=== PATIENT | male | born 1940 | race Caucasian/White ===

== ENCOUNTER → 2017-03-12 | Outpatient (CLI) | payer BC ==
[~2017-03-12] MED LIST: ASPI325T39 PO; OMEP20TA PO; ONDA8TAB6 PO; PROC1TAB5 PO; PSYL48.59 PO; SIMV40TA2 PO
--- NOTE | 2017-03-12 13:06 | DIAGNOSTIC IMAGING REPORT ---
PET/CT SKULL-THIGH CLINICAL HISTORY: ESOPHAGEAL CANCER COMPARISON STUDY: 12/23/2016 FINDINGS: The patient was injected with 11.3 mCi of F-18 labeled FDG. Following the standard induction phase, PET/CT scanning is performed from the skull base to the upper thigh region. Within the neck, there is a subtle focus of increased FDG activity fusing to the right lobe of the thyroid. This has an SUV maximum of 3.3. In retrospect this appears similar to the preceding study. Within the chest, there is persistent increased activity fusing to a thick walled mid to distal esophagus. This is SUV maximum of 4.3. The previously identified hypermetabolic left paratracheal/para esophageal soft tissue mass has normalized in activity, and decreased in size. There is no new pathologic jorge activity within the chest. There is no FDG avid pulmonary parenchymal disease. There is underlying pulmonary emphysema. Within the abdomen, there is no pathologic hepatic or adrenal activity. There is no pathologic jorge activity. There is physiologic urinary tract and bowel activity. There is a 3.4 cm infrarenal abdominal aortic aneurysm There are no FDG avid skeletal lesions. IMPRESSION: 1. Persistent soft tissue thickening and increased FDG activity involving the distal one third of the esophagus 2. The previously identified left paratracheal/para esophageal soft tissue mass, extending to the level the AP window appear significantly smaller than on the preceding study and is no longer FDG avid. This would seem to indicate a treatment response 3. No pathologic abdominal activity. 4. Stable 3.4 cm infrarenal abdominal aortic aneurysm Electronically signed by: Jama Del Cid M.D. 03/12/2017 1:05 PM Dictated Date/Time: 03/12/2017 12:55 PM
== END | disposition home or self-care (01) ==
LOC: C.PET 09:03
PROVIDERS: ATTEND Internal Medicine Hematology
DX: C15.5 Malignant neoplasm of lower third of esophagus (principal); R59.0 Localized enlarged lymph nodes; I71.4 Abdominal aortic aneurysm, without rupture

== ENCOUNTER → 2017-03-26 | Outpatient (CLI) | payer BC ==
[~2017-03-26] MED LIST changes: +SENN-61 PO
[2017-03-26 14:06] VITALS: BP 106/63; PULSE 79; TEMP 36.5; O2SAT 98
--- NOTE | 2017-03-26 15:57 | Radiation Oncology Follow-Up ---
Radiation Oncology Follow-Up Date of Visit Mar 26, 2017. Reason For Visit One-month follow-up and cancer survivorship care plan Radiation Completion Date finished 02-14-2017 Diagnosis (1) Esophageal carcinoma Status: Acute Onset Date: 12/06/2016 Location: mid to lower esophagus Histology Subtype: adenocarcinoma Stage: lll Permanent Comment: Dysphagia beginning in September Status post upper GI endoscopy and biopsies 12/06/2016 Adenocarcinoma moderately differentiated Status post staging studies including CTs and head CT Clinical stage T3/4 N1 M0 Plan for combined radiation and chemotherapy followed by 3 cycles of chemotherapy Plan for esophagectomy at [facility] following preoperative chemoradiation Last Edited By: Benito Aguilar on Mar 07, 2017 16:11 History of Present Illness Mr. Pollock complained of dysphagia which started in September 2016. The patient was referred by his primary care physician to Dr. Benavides who performed a an upper endoscopy on 12/06/2016 which revealed "a large fungating mass with bleeding found in the lower third of the esophagus, 25-30 cm from the incisors. The mass was partially obstructing and circumferential and biopsies were obtained. Pathology confirmed invasive adenocarcinoma that was moderately differentiated and was HER-2 negative. The patient underwent a CT of the chest/ abdomen/pelvis on 12/07/2016 which revealed: "IMPRESSION: 1. Wall thickening involving the mid to distal esophagus as described above compatible with known esophageal malignancy. 2. Mediastinal lymphadenopathy. 3. Bilateral nonobstructive nephrolithiasis. Renal cysts. Several too small to characterize renal hypodensities. A 7 mm exophytic lesion from the left inferior pole demonstrates higher than fluid attenuation. This may be a hemorrhagic/proteinaceous cyst. Attention recommended on follow-up. 4. Additional findings as described above." The patient underwent a PET/CT scan which revealed: "IMPRESSION: 1. Hypermetabolic soft tissue mass of the distal one third esophagus measuring up to 3.5 cm compatible with known esophageal carcinoma. 2. Hypermetabolic left paratracheal soft tissue mass at the level of the AP window, 3.3 x 4.1 cm with extension into the tracheoesophageal recess suggests metastatic adenopathy. 3. Mildly increased FDG activity about the anterolateral left seventh rib without corresponding abnormality on the CT component of the study may reflect occult fracture or occult metastasis. Attention at follow-up recommended. 4. Additional incidental findings as above including fusiform infrarenal abdominal aortic aneurysm, 3.5 cm." The patient was seen by Dr. Bebeto Aguilar from medical oncology. Dr. Aguilar recommended consideration of chemotherapy and radiation therapy alone as the patient's primary malignancy appears to be unresectable and locally advanced in the mediastinum ([id number]). Dr. Aguilar from medical oncology has recommended FOLFOX chemotherapy with radiation therapy. We are now seeing the patient in consultation discussed the role of radiation therapy. The patient continues to have dysphasia otherwise is asymptomatic. He still is able to tolerate food and has maintained his weight recently. Status post completion of combined radiation and chemotherapy 02/14/2017. He received 5040 cGy. Interim History He has steadily improved over the past month. He denies any difficulty with swallowing. He is not experiencing dysphasia. He feels that occasionally there can be some difficulty with swallowing at the lower portion of the neck. There is been no regurgitation due to inability to swallow. He denies any discomfort in the chest. He has been seen at the [facility] on 03/20/2017. He is scheduled for the esophagectomy 04/07/2017. Prior to that visit he did have a PET/CT on 03/12/2017. Showed a persistent soft tissue thickening and increased FDG activity involving the distal one third of the esophagus. The previously identified left peritracheal/paraesophageal soft tissue mass, extending to the level of the AP window appears significantly smaller than on the preceding study and is no longer FDG avid. This would indicate treatment response. No pathologic abdominal activity. Stable 3.4 cm infrarenal abdominal aortic aneurysm. He is seen in medical oncology. There was a previous discussion of continue chemotherapy for 3 cycles following the combined therapy. After seeing the surgeon the patient has opted to have surgery and then possibly chemotherapy afterward if needed. Allergies Coded Allergies: No Known Allergies (Unverified , 12/26/16) Home Medications Scheduled Aspirin (Aspirin Ec), 325 MG PO Q2D Omeprazole (Omeprazole), 40 MG PO DAILY Prochlorperazine Maleate (Compazine), 10 MG PO Q4H Psyllium (Metamucil), 1 TSP PO BID Simvastatin (Zocor), 40 MG PO 4XWK Scheduled PRN Ondansetron Hcl (Zofran), 8 MG PO TID PRN for Nausea Senna (Senokot), 2 TAB PO DAILY PRN for Constipation Review of Systems Gastrointestinal: Symptoms: Constipation Oral: Symptoms: No Problems Respiratory: Symptoms: WNL Urinary: Symptoms: WNL Comments: occ nocturia Skin: Symptoms: No Problems Additional Notes: He completed a distress management report and answered "no" to all questions. Physical Exam Vital Signs Date Time Temp Pulse Resp B/P (MAP) Pulse Ox O2 Delivery O2 Flow Rate FiO2 03/26/17 14:06 36.5 79 16 106/63 98 Fatigue: None General Appearance: no apparent distress Eyes: normal inspection, EOMI ENT: normal ENT inspection, hearing grossly normal Neck: no adenopathy, thyroid normal Respiratory/Chest: lungs clear, no respiratory distress, no accessory muscle use Cardiovascular: regular rate, rhythm, no gallop, no murmur Extremities: no pedal edema Neurologic/Psychiatric: no motor/sensory deficits, alert, normal mood/affect Skin: warm/dry Pain Management Patient Reports Pain: No Side: Bilateral Patient Preferred Pain Scale: 0 - 10 Initial Pain Intensity: 0.0 Pain Management Plan He denies pain therefore requires no pain management. Laboratory Laboratory Results: not applicable Pathology Pathology Results: not applicable Imaging Imaging Studies: were reviewed, and pertinent findings noted below Imaging Comments Patient: RAY WYLIE Address1: [address] [place] [address] Rec: [id number] Address2: Acct ID: [id number] [facility] Zip: [place] [address] Date: 1940 Sex: M Room/Bed: Ref Phy: SC: C.PET Att Phy: Bebeto Aguilar M.D. Report #: [id number] Brissa Phy: Marco Antonio Brantley M.D. Test: PETCTST Admit Phy: Manager Of Environmental Services: [employer] Interpreting Phy: Jama Del Cid M.D. Diagnosis: ESOPHAGEAL CA Ordering Phy: Bebeto Aguilar M.D. Service Date: 03/12/17 Admit Date: 03/12/17 MNE: [id number] CONF: DICTATED BY: Jama Del Cid M.D.]] CC: Marco Antonio Brantley M.D. Patel, Nilesh A., M.D. Endcc: [~ rep ct add3]] PET/CT SKULL-THIGH CLINICAL HISTORY: ESOPHAGEAL CANCER COMPARISON STUDY: 12/23/2016 FINDINGS: The patient was injected with 11.3 mCi of F-18 labeled FDG. Following the standard induction phase, PET/CT scanning is performed from the skull base to the upper thigh region. Within the neck, there is a subtle focus of increased FDG activity fusing to the right lobe of the thyroid. This has an SUV maximum of 3.3. In retrospect this appears similar to the preceding study. Within the chest, there is persistent increased activity fusing to a thick walled mid to distal esophagus. This is SUV maximum of 4.3. The previously identified hypermetabolic left paratracheal/para esophageal soft tissue mass has normalized in activity, and decreased in size. There is no new pathologic jorge activity within the chest. There is no FDG avid pulmonary parenchymal disease. There is underlying pulmonary emphysema. Within the abdomen, there is no pathologic hepatic or adrenal activity. There is no pathologic jorge activity. There is physiologic urinary tract and bowel activity. There is a 3.4 cm infrarenal abdominal aortic aneurysm There are no FDG avid skeletal lesions. IMPRESSION: 1. Persistent soft tissue thickening and increased FDG activity involving the distal one third of the esophagus 2. The previously identified left paratracheal/para esophageal soft tissue mass, extending to the level the AP window appear significantly smaller than on the preceding study and is no longer FDG avid. This would seem to indicate a treatment response 3. No pathologic abdominal activity. 4. Stable 3.4 cm infrarenal abdominal aortic aneurysm Electronically signed by: Jama Del Cid M.D. 03/12/2017 1:05 PM Dictated Date/Time: 03/12/2017 12:55 PM Assessment & Plan Plan: Patient is also seen and examined by Dr. Aguilar. We reviewed his recent PET/CT. Today we completed a cancer survivorship care plan. A copy of the document was given to the patient. He'll be undergoing the esophagectomy 2017. We asked him to return to our office 6 months. He may call if he has any questions or concerns in the interim. Assessment & Plan (Attending) I agree with note created by Mary Rodriguez PA-C. I reviewed the patient's chart and information with her. I have examined and evaluated the patient. I reviewed relevant clinical information and answered the patient's and/or family' s questions. SECTION MAINTAINER Total Time In Follow-Up I spent 20 minutes speaking to the patient and performing examination. I spent 20 minutes reviewing information, preparing the survivorship document, and completing this note. Total Time (Attending) In Follow-Up I spent 15 minutes examining and counseling the patient. SECTION MAINTAINER Copy To Bob Melendez M.D., FACS; Logan Jones M.D.; Tan Benavides M.D.; Marco Antonio Brantley M.D.; Bebeto Aguilar M.D.
== END | disposition home or self-care (01) ==
LOC: C.ONC 13:56
PROVIDERS: ATTEND Physician Assistant Medical
DX: Z08 Encounter for follow-up examination after completed treatment for malignant neoplasm (principal); Z92.3 Personal history of irradiation; Z85.01 Personal history of malignant neoplasm of esophagus

== ENCOUNTER → 2017-06-13 | Day surgery (SDC) | payer BC ==
[2017-06-11 08:45] VITALS: Ht 172.7 cm; Wt 77.3 kg
[~2017-06-13] VITALS: Ht 172.7 cm; Wt 77.3 kg
[~2017-06-13] MED LIST changes: +ACET-1256 PO; -OMEP20TA PO; -ONDA8TAB6 PO; -PROC1TAB5 PO; -PSYL48.59 PO; -SIMV40TA2 PO; +ZNT/150 PO
[2017-06-13 11:25] VITALS: BP 122/79; PULSE 80; TEMP 36.6; O2SAT 97
--- NOTE | 2017-06-13 12:07 | Endo History and Physical ---
History & Physical Date of Service: Jun 13, 2017. Chief Complaint: PEJ tube removal Referring Physician: History of Present Illness PEJ tube removal Past Surgical History Hx Cardiac Surgery: No Hx Internal Defibrillator: No Hx Pacemaker: No Hx Abdominal Surgery: Yes (PEG TUBE PLACEMENT) Hx of Implantable Prosthesis: No Hx Post-Op Nausea and Vomiting: No Hx Cancer Surgery: Yes (ESOPHAGEAL CANCER) Hx Thoracic Surgery: No Hx Orthopedic: Yes (L TKA) Hx Urinary Tract Surgery: No Family History Colon CA, Esophogeal CA Social History Smoking Status: Former Smoker Hx Substance Use: No Hx Alcohol Use: Yes (COUPLE BEERS A WEEK) Allergies Coded Allergies: No Known Allergies (Verified , 06/13/17) Current Medications Reported Home Medications Medications Dose Route/Sig Max Daily Dose Days Date Category Tylenol (Acetaminophen) 500 Mg Tab 1 Tab PO Q8 3 06/11/17 Reported Senokot (Senna) 8.6 Mg Tab 2 Tab PO DAILY PRN 03/26/17 Reported Aspirin Ec (Aspirin) 325 Mg Tab 325 Mg PO Q2D 12/26/16 Reported Vital Signs Weight (Kilograms): 77.27 Height (Feet): 5 Height (Inches): 8 Date Time Temp Pulse Resp B/P (MAP) Pulse Ox O2 Delivery O2 Flow Rate FiO2 06/13/17 11:25 36.6 80 16 122/79 (93) 97 Room Air Physical Exam General Appearance: no apparent distress Respiratory/Chest: Auscultation: breath sounds normal Cardiovascular: Heart Auscultation: RRR Abdomen: Bowel Sounds: normal Assessment and Plan Remove PEJ tube
--- NOTE | 2017-06-13 12:14 | Discharge Instructions ---
Endoscopy Patient Instructions Date / Procedure(s) Performed Jun 13, 2017. Other Allergy Information Coded Allergies: No Known Allergies (Verified , 06/13/17) Discharge Date / Findings Jun 13, 2017. Removal of J tube; removed without incident Medication Instructions Stopped Medication(s): ASPIRIN 2DAYS AGO Resume aspirin Provider Instructions Activity Restrictions - No exercising or heavy lifting for 24 hours. - Do not drink alcohol the day of the procedure. - Do not drive a car or operate machinery until the day after the procedure. - Do not make any important decisions or sign important papers in 24 hours after the procedure. Following Day: - Return to full activity which may include returning to work/school. Diet Start your diet with liquids and light foods (jello, soup, juice, toast). Then eat your usual diet if not nauseated. Treatment For Common After Affects For mild abdominal pain, bloating, or excessive gas: - Rest - Eat lightly - Lie on right side Follow-Up Information Follow-up with as scheduled Anesthesia Information What You Should Know You have had a procedure that required some medicine to reduce anxiety and discomfort. This treatment is called moderate sedation. After receiving the treatment, you may be sleepy, but you will be able to breathe on your own. The effects of the treatment may last for several hours. Follow these instructions along with Activity/Diet recommendations noted above: * Do NOT do anything where dizziness or clumsiness would be dangerous. * Rest quietly at home today, then you can be up and about tomorrow. * Have a responsible person stay with you the rest of today. * You may have had an I.V. today. If so, you may take the dressing off later today. Recommendations Call your doctor if: * Trouble breathing * Continuous vomiting for more than 24 hours * Temperature above 101 degrees * Severe abdominal pain or bloating * Pain not relieved by pain medicine ordered * There is increased drainage or redness from any incision * A large amount of rectal bleeding greater than 2-3 tablespoons. (If you had a polyp/s removed or have hemorrhoids, a small amount of blood - from the rectum is to be expected.) * You have any unanswered questions or concerns. IN THE EVENT OF A SERIOUS EMERGENCY, GO TO THE NEAREST EMERGENCY ROOM Your discharge instructions were prepared by provider Fahad Perez. Patient Instructions Signature Page Renuka Brown Patient (or Guardian) Signature/Date: I have read and understand the instructions given to me by my caregivers. Caregiver/RN/Doctor Signature/Date: The above-named patient and/or guardian has received patient instructions on this date. + Original Patient Signature Page (only) stays with chart. Please make copy for patient.
--- NOTE | 2017-06-13 12:16 | GI REPORT ---
Procedure Date: 06/13/2017 12:14 PM Procedure: Non-endoscopic Tube Procedure Indications: Remove PEJ tube (no longer needed) Medicines: None Complications: No immediate complications. Estimated Blood Loss: Estimated blood loss: none. Procedure: Pre-Anesthesia Assessment: - After reviewing the risks and benefits, the patient was deemed in satisfactory condition to undergo the procedure. After obtaining informed consent, the site was prepped and the procedure was performed. The procedure was accomplished without difficulty. The patient tolerated the procedure well. Findings: The previously placed J tube was in place and was unremarkable. There was a skin suture that was removed, and the tube was easily removed by traction without complication. Recommendation: - Discharge patient to home. Fahad Bobby M.D. Fahad Bobby MD 06/13/2017 12:15:56 PM This report has been signed electronically. Note Initiated On: 06/13/2017 12:14 PM I attest to the content of the Intraoperative Record and orders documented therein, exceptions below
== END | disposition home or self-care (01) ==
LOC: C.GI 10:54
PROVIDERS: ATTEND Internal Medicine Gastroenterology
DX: Z43.1 Encounter for attention to gastrostomy (principal); R13.10 Dysphagia, unspecified; Z85.01 Personal history of malignant neoplasm of esophagus; Z96.652 Presence of left artificial knee joint; Z87.891 Personal history of nicotine dependence; Z79.82 Long term (current) use of aspirin; Z80.0 Family history of malignant neoplasm of digestive organs

== ENCOUNTER → 2017-09-23 | Outpatient (CLI) | payer BC ==
[2017-03-26 14:06] VITALS: BP 106/63; PULSE 79
[~2017-09-23] MED LIST changes: +LEVO100T7 PO; -ZNT/150 PO; +[UNRECOGNIZED DRUG - OTHER] IM
[2017-09-23 13:56] VITALS: BP 146/73; PULSE 66; TEMP 37; O2SAT 98
--- NOTE | 2017-09-23 16:03 | Radiation Oncology Follow-Up ---
Radiation Oncology Follow-Up Date of Visit Sep 23, 2017. Reason For Visit Six-month follow-up Radiation Completion Date 02/14/17 Diagnosis (1) Esophageal carcinoma Status: Acute Onset Date: 12/06/2016 Location: Mid to lower esophagus Histology Subtype: Adenocarcinoma Stage: lll Permanent Comment: Dysphagia beginning in September Status post upper GI endoscopy and biopsies 12/06/2016 Adenocarcinoma moderately differentiated Status post staging studies including CTs and head CT Clinical stage T3/4 N1 M0 Plan for combined radiation and chemotherapy followed by 3 cycles of chemotherapy Plan for esophagectomy at [facility] following preoperative chemoradiation Last Edited By: Benito Aguilar on Mar 07, 2017 16:11 History of Present Illness Mr. Pollock complained of dysphagia which started in September 2016. The patient was referred by his primary care physician to Dr. Benavides who performed a an upper endoscopy on 12/06/2016 which revealed "a large fungating mass with bleeding found in the lower third of the esophagus, 25-30 cm from the incisors. The mass was partially obstructing and circumferential and biopsies were obtained. Pathology confirmed invasive adenocarcinoma that was moderately differentiated and was HER-2 negative. The patient underwent a CT of the chest/ abdomen/pelvis on 12/07/2016 which revealed: "IMPRESSION: 1. Wall thickening involving the mid to distal esophagus as described above compatible with known esophageal malignancy. 2. Mediastinal lymphadenopathy. 3. Bilateral nonobstructive nephrolithiasis. Renal cysts. Several too small to characterize renal hypodensities. A 7 mm exophytic lesion from the left inferior pole demonstrates higher than fluid attenuation. This may be a hemorrhagic/proteinaceous cyst. Attention recommended on follow-up. 4. Additional findings as described above." The patient underwent a PET/CT scan which revealed: "IMPRESSION: 1. Hypermetabolic soft tissue mass of the distal one third esophagus measuring up to 3.5 cm compatible with known esophageal carcinoma. 2. Hypermetabolic left paratracheal soft tissue mass at the level of the AP window, 3.3 x 4.1 cm with extension into the tracheoesophageal recess suggests metastatic adenopathy. 3. Mildly increased FDG activity about the anterolateral left seventh rib without corresponding abnormality on the CT component of the study may reflect occult fracture or occult metastasis. Attention at follow-up recommended. 4. Additional incidental findings as above including fusiform infrarenal abdominal aortic aneurysm, 3.5 cm." The patient was seen by Dr. Bebeto Aguilar from medical oncology. Dr. Aguilar recommended consideration of chemotherapy and radiation therapy alone as the patient's primary malignancy appears to be unresectable and locally advanced in the mediastinum ([id number]). Dr. Aguilar from medical oncology has recommended FOLFOX chemotherapy with radiation therapy. We are now seeing the patient in consultation discussed the role of radiation therapy. The patient continues to have dysphasia otherwise is asymptomatic. He still is able to tolerate food and has maintained his weight recently. Status post completion of combined radiation and chemotherapy 02/14/2017. He received 5040 cGy. Interim History Over the past 6 months he has had continued follow-up with medical oncology, gastroenterology, and ophthalmology. He does have issues with a stricture. He has had one dilatation. He has again developed dysphasia and difficulty of swallowing. He is going to have repeat dilatation on September 30, 2017. Recheck scoping's have revealed no recurrence. His weight is stable. He has had an ongoing pressure behind the right eye. This is intermittent. Occasionally he will have to take Tylenol. He does this approximately 3 or 4 times per week. He notices that he if he has increased coughing the pressure will increase. He also notices the pressure increases with bending over. He has seen ophthalmology and had a complete evaluation. He was told that his eye is "healthy" he was evaluated for glaucoma and that was negative. He notices at times he has difficulty with taking in a deep breath. He coughed and sustained a fracture to a left rib. This is steadily healing. That has become more noticeable over the past few months. He has had recheck studies including a PET CT on July 30. Allergies Coded Allergies: No Known Allergies (Verified , 06/13/17) Home Medications Scheduled Acetaminophen (Tylenol), 1 TAB PO Q8 Aspirin (Aspirin Ec), 325 MG PO Q2D Levothyroxine Sodium (Levothyroxine Sodium), 1 TAB PO DAILY [B12 Injection], 1 APPLN IM MONTHLY Scheduled PRN Senna (Senokot), 2 TAB PO DAILY PRN for Constipation Review of Systems Gastrointestinal: Symptoms: WNL, Constipation GI Comments: Senna PRN Oral: Symptoms: No Problems Other Oral Symptoms: Possible staple sticking out causing swallowing issues - EGD 09/30/17 Respiratory: Symptoms: WNL, Moist Cough, Productive Cough Sputum Character: Clearn Sputum with productive Cough Urinary: Symptoms: WNL Comments: occ nocturia Skin: Symptoms: No Problems Physical Exam Vital Signs Date Time Temp Pulse Resp B/P (MAP) Pulse Ox O2 Delivery O2 Flow Rate FiO2 09/23/17 13:56 37.0 66 16 146/73 98 ECOG Performance Status: 0 Fatigue: None General Appearance: no apparent distress Eyes: normal inspection, EOMI ENT: normal ENT inspection, hearing grossly normal, + pertinent finding (There is no trismus. He has no tenderness of the TMJ. There is no tenderness of the frontal or maxillary sinuses.) Neck: no adenopathy, thyroid normal Respiratory/Chest: lungs clear, no respiratory distress, no accessory muscle use Cardiovascular: regular rate, rhythm, no gallop, no murmur Abdomen: non tender, soft, no organomegaly Extremities: no pedal edema Neurologic/Psychiatric: no motor/sensory deficits, alert, normal mood/affect Skin: warm/dry Pain Management Patient Reports Pain: Yes Side: Left Pain Location: Ribs Patient Preferred Pain Scale: 0 - 10 Initial Pain Intensity: 2.0 Pain Management Plan This is steadily improving and does not require any pain management through our office. He takes Tylenol intermittently. Laboratory Laboratory Results: not applicable Pathology Pathology Results: were reviewed, and pertinent findings noted in HPI Imaging Imaging Studies: were reviewed, and pertinent findings noted below Imaging Comments Patient: RAY WYLIE Address1: [address] [place] [address] Rec: [id number] [facility] [id number] [facility] Zip: [place] [address] Date: 1940 Sex: M Room/Bed: Ref Phy: Marco Antonio Brantley M.D. SC: CJeffreyPET Att Phy: Bebeto Aguilar M.D. Report #: [id number] Brissa Phy: Marco Antonio Brantley M.D. Test: PETCTST Admit Phy: Assistant Press Operator: KATELYNN Interpreting Phy: Amadeo Hope M.D. Diagnosis: ESOPHAGEAL CA Ordering Phy: Bebeto Aguilar M.D. Service Date: 07/30/17 Admit Date: 07/30/17 MNE: [id number] CONF: DICTATED BY: Amadeo Hope M.D.]] CC: Marco Antonio Brantley M.D. Patel, Nilesh A., M.D. [facility]: [~ rep ct add3]] PET/CT CLINICAL HISTORY: Esophageal cancer. COMPARISON STUDY: PET/CT dated 03/12/2017. Chest CT dated 12/07/2016. TECHNIQUE: One hour following the IV administration of 11.99 mCi of F-18 FDG, PET/CT examination was performed from the orbital meatal line through the bony pelvis. Noncontrast CT is performed for the purposes of anatomic correlation and attenuation correction. Note that this does not reflect a diagnostic CT examination. Images were reviewed on a separate [employer] independent workstation. Fused images were obtained. Standard uptake values reported are maximum values within the region of interest expressed in gm/mL. FINDINGS: PET FINDINGS: Head and neck: There is expected physiologic activity within the visualized brain parenchyma at the skull base and the salivary glands. Thorax: Evaluation of the thorax demonstrates expected physiologic myocardial activity. There is diffuse activity throughout the thyroid gland which demonstrates a maximum of severe 5.2. No focal thyroid lesion is identified. There are postoperative changes from esophageal resection with gastric pull-through procedure. There is a focus of intense FDG activity identified adjacent to the gastric pull-through seen on image #69. This demonstrates a maximum SUV of 3.2. There is no corresponding soft tissue lesion seen on the CT images. No FDG avid mediastinal lymph nodes are identified. There is a 10 mm nodular density in the left lower lobe seen on image #80. This demonstrates FDG activity with a maximum SUV of 3.3. There is low level FDG activity within bibasilar atelectasis. This demonstrate a maximum SUV of 2.1. There is intense abnormal FDG activity identified within the anterior left seventh rib seen on image #123. This demonstrates a maximum SUV of 4.1. A subtle lytic lesion is suggested at this site. Abdomen and pelvis: There is expected activity within the liver, spleen, kidneys, renal collecting system, and bladder. Low-level bowel activity is likely within physical limits. Unenhanced CT images: The partially imaged brain parenchyma at the skull base is normal in appearance. The overall contents are normal as visualized noting bilateral ocular lens implants. The salivary and thyroid glands are normal in appearance. There is atherosclerotic calcification of the carotid bulbs. No cervical adenopathy is identified. A left subclavian central venous infusion port is in place. There is atherosclerotic calcification of the thoracic aorta which is normal in caliber. There is no axillary or hilar adenopathy. Emphysema is noted. There is a small to moderate left pleural effusion with associated atelectasis. Scarring/atelectasis is seen at the right lung base. The unenhanced liver, gallbladder, spleen, and adrenal glands are grossly unremarkable. The unenhanced pancreas is atrophic. The kidneys insert cortical atrophy and are without hydronephrosis. Small nonobstructing renal calculi are noted and there are renovascular calcifications. Left renal cysts measure up to 1.9 cm. There is advanced atherosclerotic calcification of the abdominal aorta. An infrarenal abdominal aortic aneurysm measures 3.6 x 3.5 cm. There is no bowel obstruction. There is mild colonic diverticulosis without CT evidence of acute diverticulitis. Colonic fecal retention is observed. The splenic flecture is contained within a large hiatal hernia. There is no upper abdominal, mesenteric, retroperitoneal, iliac chain, pelvic sidewall, or inguinal lymphadenopathy. The prostate gland is enlarged and heterogeneous. The bladder wall is thickened and trabeculated suggesting chronic outlet obstruction. The skeletal structures are heterogeneously osteopenic. There are healed left-sided rib fractures. Degenerative changes noted throughout the spine. IMPRESSION: 1. There are postoperative changes from esophagectomy and gastric pull-through procedure. This is new from the 03/12/2017 examination. 2. There is a small to moderate left pleural effusion and bibasilar atelectasis. 3. There is an indeterminant and FDG avid 10 mm nodular density in the left lower lobe. There is adjacent pleural effusion and atelectasis, and this could be on an inflammatory basis. Neoplasm is not excluded and attention at follow-up is recommended. 4. No additional FDG avid pulmonary lesions are suggested. 5. There is intense focal abnormal FDG activity identified within the left anterior seventh rib, new from 03/12/2017. A subtle osteolytic lesion is questioned in this region. Although this could be on a posttraumatic basis, neoplasm is not excluded. Again, attention at follow-up will be required. 6. No additional FDG avid osseous lesions are suggested. 7. There is a focus of FDG activity along the gastric pull-through. There is no corresponding soft tissue lesion seen on the CT images and this may be related to recent surgery. Attention at follow-up will be required. 8. There is a 3.6 x 3.5 cm infrarenal abdominal aneurysm. 9. Emphysema. 10. There is a large hiatal hernia which contains the splenic flexure of the colon. 11. There is bibasilar atelectasis which demonstrates nonspecific low-level FDG activity. 12. There is diffuse FDG uptake seen throughout the thyroid gland, significant increase from 03/12/2017. The appearance is atypical for neoplasm. Correlation with serum thyroid function studies will be required. 13. Additional findings as above. Electronically signed by: Amadeo Hope M.D. 07/30/2017 12:02 PM Dictated Date/Time: 07/30/2017 11:18 AM Assessment & Plan Plan: The patient was seen and examined by Dr. Aguilar. We have reviewed his PET/ CT. The CT portion of the study was also reviewed to evaluate the orbits. There were no lesions noted in this area. He will be following up with gastroenterology and have the esophageal dilatation September 30. Continue regular follow-up with medical oncology. Recheck PET scanning per medical oncology. Today we discussed incentive spirometry. I have encouraged him to do deep breathing exercises twice a day. We asked him to return to our office in 1 year. He may call if he has any questions or concerns in the interim. Assessment & Plan (Attending) I agree with note created by Mary Rodriguez PA-C. I reviewed the patient's chart and information with her. I have examined and evaluated the patient. I reviewed relevant clinical information and answered the patient's and/or family' s questions. STAGING TECHNICIAN Total Time In Follow-Up I spent 20 minutes speaking to the patient in performing examination. I spent 15 minutes reviewing information and completing this note. A AK Total Time (Attending) In Follow-Up I spent 15 minutes examining and counseling the patient. STAGING TECHNICIAN Copy To Logan Jones M.D.; Tan Benavides M.D.; Marco Antonio Brantley M.D.; Bebeto Aguilar M.D.
== END | disposition home or self-care (01) ==
LOC: C.ONC 13:36
PROVIDERS: ATTEND Physician Assistant Medical
DX: Z08 Encounter for follow-up examination after completed treatment for malignant neoplasm (principal); Z92.3 Personal history of irradiation; Z85.01 Personal history of malignant neoplasm of esophagus

== ENCOUNTER 2018-07-10 18:29 | Inpatient (IN) ==
--- NOTE | 2018-07-10 18:48 | CT Scan Report ---
CT OF THE HEAD WITHOUT CONTRAST CLINICAL HISTORY: Stroke. COMPARISON STUDY: Head CT March 20, 2018. CT DOSE: 537.48 mGy.cm TECHNIQUE: Helical axial images of the head were obtained without IV contrast. Automated exposure con trol was utilized for the study. A dose lowering technique was utilized adhering to the principles o f ALARA. FINDINGS: No acute intracranial hemorrhage, midline shift or mass effect is present. Ventricular syst em is stable. The basilar cisterns are patent. There are no extra-axial collections. 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 There are multiple old lacunar infarcts within the right basal ganglia a nd internal capsule. A 7 mm hypodensity within the right thalamus on image 14 of 28 is noted. This wa s not evident on prior exam. There are no findings to suggest acute dural sinus thrombosis or acute t erritorial infarct. There are no significant calvarial abnormalities. IMPRESSION: 1. No acute intracranial hemorrhage or mass effect. 2. 7 mm right thalamic hypodensity. This represents an age indeterminate lacunar infarct but is likel y subacute to chronic. Electronically signed by: Alvin Andrew M.D. 07/10/2018 6:47 PM
[2018-07-10 19:10] LABS: INR 1.1 (0.9-1.1); Partial Thromboplastin Ratio 1.4; Partial Thromboplastin Time 38.1 Seconds (21.0-31.0); Prothrombin Time 10.8 Seconds (9.0-12.0)
[2018-07-10 19:17] LABS: Alanine Aminotransferase 12 U/L (12-78); Albumin Level 2.9 gm/dl (3.4-5.0); Aspartate Aminotransferase 10 U/L (15-37); BUN Creatinine Ratio 10.2 (10-20); Blood Urea Nitrogen 13 mg/dl (7-18); Calcium 7.8 mg/dl (8.5-10.1); Carbon Dioxide 34 mmol/L (21-32); Chloride 91 mmol/L (98-107); Est GFR (African American) 63.2; Est GFR (Non-African American) 54.5; Glucose 131 mg/dl (70-99); Magnesium 1.7 mg/dl (1.8-2.4); Potassium 2.9 mmol/L (3.5-5.1); Sodium 132 mmol/L (136-145)
[2018-07-10 19:22] LABS: Albumin Globulin Ratio 0.8 (0.9-2); Alkaline Phosphatase 62 U/L (45-117); Bilirubin,Total 0.8 mg/dl (0.2-1); Globulin 3.5 gm/dl (2.5-4.0); Total Protein 6.4 gm/dl (6.4-8.2); Troponin I < 0.015 ng/ml (0-0.045)
[2018-07-10] MEDS ORDERED: SODIUM CHLORIDE 0.9% 1000ML 500 ML IV ONE ×2 (19:32→20:20)
--- NOTE | 2018-07-10 19:36 | XRay Report ---
XR chest 1V portable CLINICAL HISTORY: Weakness. Confusion. COMPARISON STUDY: Chest CT March 20, 2018. Head CT June 10, 2018. FINDINGS: Left subclavian [id number] is in place. Note is again made of left lower hemithorax opac ity which contains bowel loops. This represents a left diaphragmatic hernia. This appears unchanged. There is a possible small left pleural effusion. There is no evidence for pulmonary edema. Cardiomedi astinal silhouette is stable. IMPRESSION: 1. Left lower hemithorax opacity related to a left diaphragmatic hernia which appears unchanged since CT of the March 20, 2018. 2. Possible small left pleural effusion. Electronically signed by: Alvin Andrew M.D. 07/10/2018 7:34 PM
[2018-07-10 19:44] LABS: Hematocrit (blood only) 37.3 % (42-52); Hemoglobin 12.3 g/dL (14.0-18.0); Mean Corpuscular Volume 94.2 fL (80-100); Platelet Count 75 K/uL (130-400); RDW Coefficient of Variation 16.2 % (11.5-14.5); Red Blood Count 3.96 M/uL (4.7-6.1); White Blood Count 1.28 K/uL (4.8-10.8)
[2018-07-10 19:47] LABS: Dohle Bodies 1+; Lymphocytes # (auto) 0.38 K/uL (1.2-3.4); Lymphocytes % (auto) 29.7 %; Monocytes # (auto) 0.17 K/uL (0.11-0.59); Monocytes % (auto) 13.3 %; Neutrophils # (auto) 0.73 K/uL (1.4-6.5)
[2018-07-10] MEDS ORDERED: POTASSIUM CHLORIDE / WTR 10 MEQ/100 ML PLCT IV ONE (20:12)
[2018-07-10] MEDS ORDERED: CEFEPIME 2,000 MG/20 ML VIAL IV STA (20:18)
[2018-07-10] MEDS ORDERED: MAGNESIUM SULFATE / D5W 1 GM/100 ML BAG IV ONE (20:18)
--- NOTE | 2018-07-10 20:33 | Emergency Department Note ---
Entered by Armida Clark acting as a scribe for Alejandro Correia M.D. History of Present Illness General Chief complaint: Altered Mental Status Stated complaint: CONFUSION, SLOW MOTION, LEANING LEFT, WET PANTS Time Seen by Provider: 07/10/18 18:33 Source: family () History of Present Illness Onset (ago): hour(s) 6 (6.5) Location: head (altered mental status) Pain Consistency: + constant Relieved By: + none Associated symptoms: + denies other symptoms (pain, numbness, slurred speech), + weakness and + other (fatigue, urinary incontinence) The patient is a 78 year old M who presents to the Emergency Room with complaints of constant altered mental status that occurred 6.5 hour ago. The HPI was primarily provided by the patients . She states that the patient is currently getting chemotherapy for esophageal cancer. She adds that the patient had an esophageal resection performed in March 2017. She notes that the patients last chemotherapy treatment was yesterday. She adds that the patient oncologist is Dr. Bebeto Aguilar, [place], [place]. She notes that the patients symptoms started around 6.5 hours ago. She states that around 3 pm today the patient was napping on their couch but was slumped over to the left. She notes that she just thought that the patient was sleeping. She states that at 5pm toda y, she tried to call the patient to dinner but adds that the patient would not respond to her. She notes that this is when she called EMS. She states that the patient is currently experiencing fatigue, urinary incontinence, and weakness. She denies that the patient is currently experiencing pain, numbness, and slurred speech. She notes the patient is currently on Lovenox for a blood clot that occurred on the back of the patients left arm after chemotherapy. She denies that the patient has a history of strokes and recent blood transfusions. Home Medications Home Medications Medication Instructions Recorded Confirmed Type cyanocobalamin (vitamin B-12) 1,000 mcg IM .Q4 WEEKS 07/10/18 07/10/18 History dexamethasone 4 mg PO UD 07/10/18 07/10/18 History enoxaparin [Lovenox] 70 mg SUBCUT Q12 07/10/18 07/10/18 History hydrochlorothiazide 25 mg PO DAILY PRN 07/10/18 07/10/18 History levothyroxine 100 mcg PO DAILY 07/10/18 07/10/18 History morphine [MS Contin] 15 mg PO Q12 07/10/18 07/10/18 History ondansetron HCl [Zofran] 4 mg PO Q8 PRN 07/10/18 07/10/18 History oxycodone-acetaminophen [Percocet] 1 tab PO Q6 PRN 07/10/18 07/10/18 History prochlorperazine maleate 10 mg PO Q6 PRN 07/10/18 07/10/18 History ranitidine HCl [Zantac] 150 mg PO BID 07/10/18 07/10/18 History Allergies Allergy/AdvReac Type Severity Reaction Status Date / Time No Known Allergies Allergy Verified 07/10/18 19:09 Past Med/Surg History Medical History 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) "Dysphagia beginning in September Status post upper GI endoscopy and biopsies 12/06/2016 Adenocarcinoma moderately differentiated Status post staging studies including CTs and head CT Clinical stage T3/4 N1 M0 Plan for combined radiation and chemotherapy followed by 3 cycles of chemotherapy Plan for esophagectomy at [facility] following preoperative chemoradiation" On 12/26/16 17:07 Benito Aguilar wrote "Dysphagia beginning in [place] Status post upper GI endoscopy and biopsies 12/06/2016 Adenocarcinoma moderately differentiated Status post staging studies including CTs and head CT Clinical stage T4b N1 M0 Plan for combined radiation and chemotherapy followed by 3 cycles of chemotherapy" On 12/26/16 11:45 Mary Rodriguez wrote "Dysphagia beginning in [place] Status post upper GI endoscopy and biopsies 12/06/2016 Adenocarcinoma moderately differentiated Status post staging studies including CTs and head CT Clinical stage T4b N2 M0 Plan for combined radiation and chemotherapy followed by 3 cycles of chemotherapy" Radiation thyroiditis (Chronic) Surgical History H/O esophagectomy Social History Preferred Language: Turkish Communication Ability: Effective Beliefs That Will Affect Care: None marital status: Current Living Situation: Spouse current occupational status: retired Feels Safe at Home: Yes Smoking Status: Never smoker Tobacco Type: cigarettes Second Hand Exposure: No Hx Alcohol Use: Yes Alcohol type: beer Hx Substance Use: No Review of Systems See HPI for pertinent positives & negatives. and A total of 10 systems reviewed and were otherwise negative Physical Exam Vital Signs Vital Signs - 24 hr 07/10/18 18:31 07/10/18 18:43 07/10/18 18:45 Temperature 38 C H Temperature Source Oral Sepsis Recent Fever Within 48 Hours No Sepsis Action Taken by Nursing No Action Required Pulse Rate 118 H 135 H 114 H Pulse Rate from SpO2 Sensor 114 H Pulse Rhythm Regular Pulse Strength Normal Respiratory Rate 20 Respiratory Effort / Characteristics Non-Labored Spontaneous Respiratory Depth Normal Respiratory Pattern Regular Blood Pressure 114/75 108/75 Blood Pressure Mean 88 86 Blood Pressure Position Sitting Pulse Oximetry 93 94 Oxygen Delivery Method Room Air Fraction of Inspired Oxygen 07/10/18 18:46 07/10/18 19:00 07/10/18 19:11 Temperature Temperature Source Sepsis Recent Fever Within 48 Hours Sepsis Action Taken by Nursing Pulse Rate 113 H 108 H 109 H Pulse Rate from SpO2 Sensor 113 H 110 H 109 H Pulse Rhythm Pulse Strength Respiratory Rate 16 Respiratory Effort / Characteristics Respiratory Depth Respiratory Pattern Blood Pressure 92/60 L Blood Pressure Mean 70 Blood Pressure Position Pulse Oximetry 95 94 94 Oxygen Delivery Method Fraction of Inspired Oxygen 07/10/18 19:15 07/10/18 19:22 07/10/18 19:23 Temperature Temperature Source Sepsis Recent Fever Within 48 Hours Sepsis Action Taken by Nursing Pulse Rate 109 H 109 H 110 H Pulse Rate from SpO2 Sensor 109 H 110 H 105 H Pulse Rhythm Pulse Strength Respiratory Rate 18 17 17 Respiratory Effort / Characteristics Respiratory Depth Respiratory Pattern Blood Pressure 88/71 L 95/46 L Blood Pressure Mean 76 62 Blood Pressure Position Pulse Oximetry 94 93 93 Oxygen Delivery Method Room Air Fraction of Inspired Oxygen 94 07/10/18 19:30 07/10/18 19:45 07/10/18 20:00 Temperature 37.6 C H Temperature Source Oral Sepsis Recent Fever Within 48 Hours Sepsis Action Taken by Nursing Pulse Rate 111 H 99 H 98 H Pulse Rate from SpO2 Sensor 110 H 99 H Pulse Rhythm Pulse Strength Respiratory Rate 17 17 19 Respiratory Effort / Characteristics Respiratory Depth Respiratory Pattern Blood Pressure 96/69 L 110/62 Blood Pressure Mean 78 78 Blood Pressure Position Pulse Oximetry 92 92 Oxygen Delivery Method Fraction of Inspired Oxygen 07/10/18 20:01 07/10/18 20:15 07/10/18 20:16 Temperature Temperature Source Sepsis Recent Fever Within 48 Hours Sepsis Action Taken by Nursing Pulse Rate 99 H 99 H 100 H Pulse Rate from SpO2 Sensor 101 H 100 H Pulse Rhythm Pulse Strength Respiratory Rate 19 18 19 Respiratory Effort / Characteristics Respiratory Depth Respiratory Pattern Blood Pressure 106/56 L 106/63 Blood Pressure Mean 72 77 Blood Pressure Position Pulse Oximetry 94 93 Oxygen Delivery Method Fraction of Inspired Oxygen 07/10/18 20:30 07/10/18 20:31 07/10/18 20:45 Temperature Temperature Source Sepsis Recent Fever Within 48 Hours Sepsis Action Taken by Nursing Pulse Rate 104 H 102 H 100 H Pulse Rate from SpO2 Sensor 104 H 102 H 99 H Pulse Rhythm Pulse Strength Respiratory Rate 23 20 17 Respiratory Effort / Characteristics Respiratory Depth Respiratory Pattern Blood Pressure 95/58 L Blood Pressure Mean 70 Blood Pressure Position Pulse Oximetry 91 93 93 Oxygen Delivery Method Fraction of Inspired Oxygen 07/10/18 20:46 07/10/18 21:00 07/10/18 21:07 Temperature Temperature Source Sepsis Recent Fever Within 48 Hours Sepsis Action Taken by Nursing Pulse Rate 99 H 99 H 102 H Pulse Rate from SpO2 Sensor 98 H 100 H 102 H Pulse Rhythm Pulse Strength Respiratory Rate 22 22 20 Respiratory Effort / Characteristics Respiratory Depth Respiratory Pattern Blood Pressure 96/64 L 100/60 Blood Pressure Mean 74 73 Blood Pressure Position Pulse Oximetry 94 93 92 Oxygen Delivery Method Fraction of Inspired Oxygen 07/10/18 21:15 07/10/18 21:30 07/10/18 21:45 Temperature Temperature Source Sepsis Recent Fever Within 48 Hours Sepsis Action Taken by Nursing Pulse Rate 102 H 94 H 97 H Pulse Rate from SpO2 Sensor 103 H 95 H 96 H Pulse Rhythm Pulse Strength Respiratory Rate 24 17 19 Respiratory Effort / Characteristics Respiratory Depth Respiratory Pattern Blood Pressure 91/55 L Blood Pressure Mean 67 Blood Pressure Position Pulse Oximetry 91 95 93 Oxygen Delivery Method Fraction of Inspired Oxygen 07/10/18 22:00 07/10/18 22:01 Temperature Temperature Source Sepsis Recent Fever Within 48 Hours Sepsis Action Taken by Nursing Pulse Rate 95 H 97 H Pulse Rate from SpO2 Sensor 96 H 95 H Pulse Rhythm Pulse Strength Respiratory Rate 17 17 Respiratory Effort / Characteristics Respiratory Depth Respiratory Pattern Blood Pressure 95/61 L Blood Pressure Mean 72 Blood Pressure Position Pulse Oximetry 92 93 Oxygen Delivery Method Fraction of Inspired Oxygen GENERAL: Awake, alert, well-appearing, in no distress HENT: Normocephalic, atraumatic. Oropharynx unremarkable. EYES: Normal conjunctiva. Sclera non-icteric. PERRL. EOMI NECK: Supple. No nuchal rigidity. RESPIRATORY: Clear to auscultation. No wheezes. Normal respiratory effort. CARDIAC: Tachycardic rate. Irregular rhythm. Extremities warm and well perfused. GI: Soft, non-distended. No tenderness to palpation. No rebound or guarding. No masses. RECTAL: Deferred. MUSCULOSKELETAL: Atraumatic. Chest examination reveals no tenderness. Left upper chest port. LOWER EXTREMITIES: Calves are equal size bilaterally and non-tender. No edema NEURO: Responds to loud verbal stimuli. Occasionally answers and follows direction. No slurred speech. No oriented to year or president. No sensory or motor deficits noted. No facial droop. SKIN: Warm and dry. No rash or jaundice noted. Course 1831: The patient was evaluated in room B1. A complete history and physical exam was performed. 1939: I re-checked the patient. 2025: I reviewed the patient's [facility] He will evaluate the patient for further management. Consultations Consultation #1: I reviewed the patient's case [facility]. He will evaluate the patient for further management. Time: 20:26 Administered Medications Discontinued Medications Sodium Chloride (Nss 1000ml) 500 mls @ 999 mls/hr IV .Q31M ONE Stop: 07/10/18 20:02 Last Admin: 07/10/18 19:40 Dose: 999 mls/hr Documented by: [id number] Potassium Chloride (K Ankur / Wtr) 10 meq in 100 mls @ 100 mls/hr IV ONE ONE Stop: 07/10/18 21:11 Last Admin: 07/10/18 20:33 Dose: 100 mls/hr Documented by: [id number] Magnesium Sulfate/Dextrose (Magnesium Sulfate / D5w) 1 gm in 100 mls @ 100 mls/hr IV ONE ONE Stop: 07/10/18 21:17 Last Admin: 07/10/18 20:34 Dose: 100 mls/hr Documented by: [id number] Cefepime HCl (Maxipime) 2,000 mg in 20 mls @ 5 mls/min IV NOW STA; Protocol Stop: 07/10/18 20:21 Last Admin: 07/10/18 21:07 Dose: 5 mls/min Documented by: [id number] Sodium Chloride (Nss 1000ml) 500 mls @ 999 mls/hr IV .Q31M ONE Stop: 07/10/18 20:50 Last Admin: 07/10/18 20:34 Dose: 999 mls/hr Documented by: [id number] Medical Decision Making Differential Diagnosis Differential diagnosis includes: metabolic, infection, hypoglycemia, electrolyte abnormalities, cardiac sources, intracerebral event, toxicologic, neurologic, as well as others were entertained. Medical Records Attestation: I reviewed the patient's medical records. Home Medications Current Medication List: was personally reviewed by me Laboratory Data Attestation: I reviewed the patient's lab results. Result diagrams: 07/10/18 18:47 07/10/18 18:47 Lab Results 07/10/18 07/10/18 07/10/18 Range/Units 18:47 18:47 18:47 WBC 1.28 L (4.8-10.8) K/uL RBC 3.96 L (4.7-6.1) M/uL Hgb 12.3 L (14.0-18.0) g/dL Hct 37.3 L (42-52) % MCV 94.2 (80-100) fL MCH 31.1 (25-34) pg MCHC 33.0 (32-36) g/dL RDW Std Deviation 56.0 H (36.4-46.3) fL RDW Coeff of Jessy 16.2 H (11.5-14.5) % Plt Count 75 L (130-400) K/uL MPV 9.0 (7.4-10.4) fL Immature Gran % (Auto) 0.0 % Neut % (Auto) 57.0 % Lymph % (Auto) 29.7 % Esmeralda % (Auto) 13.3 % Eos % (Auto) 0.0 % Baso % (Auto) 0.0 % Immature Gran # (Auto) 0.00 (0.00-0.02) K/uL Neut # (Auto) 0.73 L* (1.4-6.5) K/uL Lymph # (Auto) 0.38 L (1.2-3.4) K/uL Esmeralda # (Auto) 0.17 (0.11-0.59) K/uL Eos # (Auto) 0.00 (0-0.5) K/uL Baso # (Auto) 0.00 (0-0.2) K/uL Dohle Bodies 1+ Platelet Estimate Decreased L (Normal) PT 10.8 (9.0-12.0) Seconds INR 1.1 (0.9-1.1) APTT 38.1 H (21.0-31.0) Seconds PTT Ratio 1.4 Sodium 132 L (136-145) mmol/L Potassium 2.9 L (3.5-5.1) mmol/L Chloride 91 L (98-107) mmol/L Carbon Dioxide 34 H (21-32) mmol/L Anion Gap 7.0 (3-11) BUN 13 (7-18) mg/dl Creatinine 1.27 (0.6-1.4) mg/dl Est Cr Clr Drug Dosing Not Reportable Est GFR ( Amer) 63.2 Est GFR (Non-Af Amer) 54.5 BUN/Creatinine Ratio 10.2 (10-20) Glucose 131 H (70-99) mg/dl POC Glucose (70-99) Lactate (0.4-2.0) mmol/L Calcium 7.8 L (8.5-10.1) mg/dl Magnesium 1.7 L (1.8-2.4) mg/dl Total Bilirubin 0.8 (0.2-1) mg/dl AST 10 L (15-37) U/L ALT 12 (12-78) U/L Alkaline Phosphatase 62 (45-117) U/L Troponin I < 0.015 (0-0.045) ng/ml Total Protein 6.4 (6.4-8.2) gm/dl Albumin 2.9 L (3.4-5.0) gm/dl Globulin 3.5 (2.5-4.0) gm/dl Albumin/Globulin Ratio 0.8 L (0.9-2) Blood Type Antibody Screen 07/10/18 07/10/18 07/10/18 Range/Units 18:47 18:47 18:48 WBC (4.8-10.8) K/uL RBC (4.7-6.1) M/uL Hgb (14.0-18.0) g/dL Hct (42-52) % MCV (80-100) fL MCH (25-34) pg MCHC (32-36) g/dL RDW Std Deviation (36.4-46.3) fL RDW Coeff of Jessy (11.5-14.5) % Plt Count (130-400) K/uL MPV (7.4-10.4) fL Immature Gran % (Auto) % Neut % (Auto) % Lymph % (Auto) % Esmeralda % (Auto) % Eos % (Auto) % Baso % (Auto) % Immature Gran # (Auto) (0.00-0.02) K/uL Neut # (Auto) (1.4-6.5) K/uL Lymph # (Auto) (1.2-3.4) K/uL Esmeralda # (Auto) (0.11-0.59) K/uL Eos # (Auto) (0-0.5) K/uL Baso # (Auto) (0-0.2) K/uL Dohle Bodies Platelet Estimate (Normal) PT (9.0-12.0) Seconds INR (0.9-1.1) APTT (21.0-31.0) Seconds PTT Ratio Sodium (136-145) mmol/L Potassium (3.5-5.1) mmol/L Chloride (98-107) mmol/L Carbon Dioxide (21-32) mmol/L Anion Gap (3-11) BUN (7-18) mg/dl Creatinine (0.6-1.4) mg/dl Est Cr Clr Drug Dosing Est GFR ( Amer) Est GFR (Non-Af Amer) BUN/Creatinine Ratio (10-20) Glucose (70-99) mg/dl POC Glucose 127 H (70-99) Lactate 1.7 (0.4-2.0) mmol/L Calcium (8.5-10.1) mg/dl Magnesium (1.8-2.4) mg/dl Total Bilirubin (0.2-1) mg/dl AST (15-37) U/L ALT (12-78) U/L Alkaline Phosphatase (45-117) U/L Troponin I (0-0.045) ng/ml Total Protein (6.4-8.2) gm/dl Albumin (3.4-5.0) gm/dl Globulin (2.5-4.0) gm/dl Albumin/Globulin Ratio (0.9-2) Blood Type O Positive Antibody Screen NEGATIVE Imaging Data Radiologist's Impression: Radiology results as stated below per my review and the radiologist's interpretation: CT OF THE HEAD WITHOUT CONTRAST CLINICAL HISTORY: Stroke. COMPARISON STUDY: Head CT March 20, 2018. CT DOSE: 537.48 mGy.cm TECHNIQUE: Helical axial images of the head were obtained without IV contrast. Automated exposure control was utilized for the study. A dose lowering technique was utilized adhering to the principles of ALARA. FINDINGS: No acute intracranial hemorrhage, midline shift or mass effect is present. Ventricular system is stable. The basilar cisterns are patent. There are no extra-axial collections. 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 There are multiple old lacunar infarcts within the right basal ganglia and internal capsule. A 7 mm hypodensity within the right thalamus on image 14 of 28 is noted. This was not evident on prior exam. There are no findings to suggest acute dural sinus thrombosis or acute territorial infarct. There are no significant calvarial abnormalities. IMPRESSION: 1. No acute intracranial hemorrhage or mass effect. 2. 7 mm right thalamic hypodensity. This represents an age indeterminate lacunar infarct but is likely subacute to chronic. Electronically signed by: Alvin Andrew M.D. 07/10/2018 6:47 PM XR chest 1V portable CLINICAL HISTORY: Weakness. Confusion. COMPARISON STUDY: Chest CT March 20, 2018. Head CT June 10, 2018. FINDINGS: Left subclavian [id number] is in place. Note is again made of left lower hemithorax opacity which contains bowel loops. This represents a left diaphragmatic hernia. This appears unchanged. There is a possible small left pleural effusion. There is no evidence for pulmonary edema. Cardiomediastinal silhouette is stable. IMPRESSION: 1. Left lower hemithorax opacity related to a left diaphragmatic hernia which appears unchanged since CT of the March 20, 2018. 2. Possible small left pleural effusion. Electronically signed by: Alvin Andrew M.D. 07/10/2018 7:34 PM ECG Data Attestation: I personally reviewed and interpreted this ECG as follows: Indication: altered mental status Rate (beats per minute): 112 Rhythm: sinus tachycardia Findings: + other (non-specific T wave changes); no ST elevation Blood Pressure Blood Pressure Findings: Normal blood pressure Blood Pressure Disposition: did not require urgent referral MDM Narrative Patient is a 78-year-old gentleman with a past medical history significant for esophageal cancer with recurrence currently on chemotherapy as well as a history of reported clot in his left upper arm and on Lovenox presents today with left- sided weakness. Was doing okay at noon. On chemotherapy and has been somewhat fatigued recently. Later this afternoon the patient was noted to have increased left sided weakness brought here for further evaluation. Discussion with the was normal around noon sleeping throughout the evening and around 3 PM was found slumped over the left. Just after 5 patient was called dinner and would not talk to her mood disorder looking entry as the patient reportedly had some left-sided drift. Here do not see significant focal deficits as far as his legs. He is not the best to following commands and very slow to answer. Occasional not even answer questions. Looking around and picking himself. Does not appear in any distress. Initial triage temperature of 38 was reported however upon arrival in the room patient was 37.6 and there is no reported infectious symptoms other than some fatigue. CT head does not show any intracranial bleeding. Patient is not a TPA candidate based on the questionable timeframes as well as his anticoagulation status. Does have evidence of some hypokalemia and hypomagnesemia which were replaced. Given a liter of IV fluid and seems to be significantly improved after this. CT does show a new hypodensity concerning for subacute to chronic stroke. Given this along with his change in status today believe admission is warranted. Given the questionable fever and his neutropenia did give a dose of cefepime for broad- spectrum coverage although I do not have an infectious source. Blood cultures were obtained. Discussed with the hospitalist and the patient and family were in agreement the plan. Impression & Plan Altered mental status, Hypokalemia, Stroke Discharge Plan Visit Data Chief Complaint: Altered Mental Status Stated Complaint: CONFUSION, SLOW MOTION, LEANING LEFT, WET PANTS ED Provider: Alejandro Correia Discharge Problem: Altered mental status, Hypokalemia, Stroke Patient Disposition: Admitted As Inpatient Forms Stand Alone Forms: My [facility] Prescriptions Prescriptions: No Action ondansetron HCl [Zofran] 8 mg tablet 4 mg PO Q8 PRN (Reason: Nausea) RF: 0 prochlorperazine maleate 10 mg tablet 10 mg PO Q6 PRN (Reason: Nausea) RF: 0 oxycodone-acetaminophen [Percocet] 5-325 mg tablet 1 tab PO Q6 PRN (Reason: MODERATE PAIN) RF: 0 levothyroxine 50 mcg Tablet 100 mcg PO DAILY RF: 0 cyanocobalamin (vitamin B-12) 1,000 mcg/mL Solution 1,000 mcg IM .Q4 WEEKS RF: 0 ranitidine HCl [Zantac] 150 mg tablet 150 mg PO BID RF: 0 dexamethasone 4 mg tablet 4 mg PO UD RF: 0 morphine [MS Contin] 15 mg tablet extended release 15 mg PO Q12 RF: 0 hydrochlorothiazide 25 mg tablet 25 mg PO DAILY PRN (Reason: FLUID BUILD UP) RF: 0 enoxaparin [Lovenox] 80 mg/0.8 mL syringe 70 mg subcut Q12 RF: 0 Referrals Referrals: Marco Antonio Brantley MD [Primary Care Provider] - Discharge Problem: Altered mental status Qualifiers: Altered mental status type: transient alteration of awareness Qualified Code(s): R40.4 - Transient alteration of awareness Stroke Qualifiers: CVA mechanism: unspecified Qualified Code(s): I63.9 - Cerebral infarction, unspecified The scribe's documentation has been prepared under my direction and personally reviewed by me in its entirety. I confirm that the note above accurately reflects all work, treatment, procedures, and medical decision making performed by me.
[2018-07-10] MEDS ORDERED: SODIUM CHLORIDE 0.9% 500 ML IV SCH (23:14)
[2018-07-10] MEDS ORDERED: PHARMACIST DISCHARGE MED REC CONSULT PRN (23:14)
[2018-07-10] MEDS ORDERED: OXYCODONE/ACETAMINOPHEN 5mg/325mg TAB PO PRN (23:14)
[2018-07-10] MEDS ORDERED: PIPERACILL/TAZOBAC CONSULT ACTIVE PRN (23:14)
[2018-07-10] MEDS ORDERED: NITROGLYCERIN SL 0.4 MG/TAB TAB SL PRN (23:14)
[2018-07-10] MEDS ORDERED: PIPERACILLIN/TAZOBACTAM 4.5 GM in DEXTROSE 5% 100 ML IV ONE (23:14)
[2018-07-10] MEDS ORDERED: ONDANSETRON INJ 2 MG/ML 2 ML VIAL IV PRN (23:14)
[2018-07-10] MEDS ORDERED: PROCHLORPERAZINE MALEATE 10 MG TAB PO PRN (23:14)
[2018-07-10] MEDS ORDERED: ACETAMINOPHEN 325 MG TAB PO PRN (23:14)
[2018-07-10] MEDS ORDERED: POTASSIUM CHLORIDE 20 MEQ/15 ML UDC PO STA (23:14)
[2018-07-10] MEDS ORDERED: VANCOMYCIN CONSULT ACTIVE PRN (23:14)
[2018-07-10] MEDS ORDERED: VANCOMYCIN HCL 1,000 MG in SODIUM CHLORIDE 0.9% 250 ML IV SCH (23:14)
[2018-07-10] MEDS ORDERED: PATIENT'S HEIGHT AND/OR WEIGHT NEEDED SCH (23:30)
[2018-07-11] MEDS: POTASSIUM CHLORIDE / WTR 10 MEQ/100 ML PLCT IV SCH ×3 (00:04→01:59)
[2018-07-11] MEDS: SODIUM CHLORIDE 0.9% 1000ML 1,000 ML IV SCH ×3 (00:04→16:24)
[2018-07-11] MEDS ORDERED: VANCOMYCIN HCL 1,750 MG in SODIUM CHLORIDE 0.9% 500 ML IV SCH (01:00)
--- NOTE | 2018-07-11 04:51 | History and Physical Report ---
DATE OF ADMISSION: 07/10/2018 CHIEF COMPLAINT: Altered mental status, left-sided weakness. 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 The patient's last chemo was last . He has a history of stroke 7-8 years ago, was in [facility]. At that time he had the same left-sided weakness, but that there was noted residual weakness. He lives with his . He ambulates okay. Appetite is okay. The patient was diagnosed with esophageal cancer in 2016 when he had a dysphagia to solids and the biopsy showed moderate adenocarcinoma, status post chemo at that time and treated with FOLFOX, then had esophagectomy and lymph node dissection at [facility] in 01/2018. He also had a history of fall and head injury in May 2016 with some mild hemorrhagic changes, did not require any surgical intervention. 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 Again he is started on chemo as per Oncology.Today afternoon around 3:00 p.m patient was found to be confused at home and was falling on his left side, was not talking much and not making sense, so he was brought in here. Initially in the ER, stroke alert was called, and CAT scan showed 7 mm right thalamic hypodensity that represents an age indeterminate lacunar infarct likely subacute to chronic and since the exact timing of his symptoms is not known and atleast almost 6 hours and also patient is on Lovenox for his DVT TPA was not given. The patient was also spiking temperatures in the ER. He was having like neutropenia and he was given a liter of fluids and cefepime and then his mental status seemed to come back to his baseline. He is answering appropriately but he takes time to answer and as per the family that is his usual since he is on chemo. He is confused of dates but he knows that he is in the hospital, knows his name, knows that his family is in the room and answers other questions appropriately. Denies any headache, denies any blurred visions. Has a chronic cough. Denies chest pain. No shortness of breath, no nausea. Some abdominal discomfort. He has some diarrhea since on chemo. Currently, blood pressure on the lower side. Otherwise, he ambulates okay. ALLERGIES: No known drug allergies. PAST MEDICAL HISTORY: As mentioned above. PAST SURGICAL HISTORY: Left knee arthroplasty, EGD, history of feeding tube, history of esophagectomy and lymph node dissection on 04/07/2017 at [facility]. MEDICATIONS: Currently the patient is on morphine sulfate ER 50 mg p.o. b.i.d., hydrocortisone 5 mg p.o. daily, Lovenox 70 mg subcutaneous b.i.d., Percocet 5/325 mg 1 tablet every 6 hours p.r.n., chlorpromazine 25 mg 1-2 tablets every 6 hours p.r.n. for hiccups, Zantac 150 mg p.o. b.i.d., Decadron 8 mg twice a day for 3 days starting the day before chemotherapy, Zofran 8 mg p.r.n., Compazine 10 mg p.o. q. 6 p.r.n., levothyroxine 100 mcg p.o. daily, Ambien 5 mg, aspirin 325 mg as needed, vitamin B12 daily. FAMILY HISTORY: No family history on file. SOCIAL HISTORY: and lives with his . Former smoker. No alcohol. No drug use. REVIEW OF SYMPTOMS: As per HPI. SUBJECTIVE: GENERAL: The patient is alert and awake and oriented x2, not in acute distress. VITAL SIGNS: Temperature 37, T-max 38, pulse 97, respiratory rate 17, blood pressure 95/61, oxygen 93-94% room air. HEENT: No pallor, no icterus. Extraocular muscles intact. NECK: No JVD, no neck masses, no carotid bruits. CARDIOVASCULAR: S1, S2 heard, regular rate and rhythm, no murmur, no gallop. RESPIRATORY SYSTEM: Normal AP diameter normal. No accessory muscle use. No wheezing, no crackles. ABDOMEN: Soft, bowel sounds present. Nontender. No distention. CENTRAL NERVOUS SYSTEM: Alert and oriented x2. Speech is clear. Power 5/5 in right upper extremity and 4/5 in left upper extremity. Mild pronator drift on the left upper extremity. Sensations intact, position sense intact. Coordination of movements normal. EXTREMITIES: No edema, no erythema. LABS: WBC 1.2, hemoglobin 12.3, hematocrit 37.3, platelets 275. PT 10.8, INR 1.1, APTT is 38.1. Sodium 132, potassium 2.9, chloride 91, bicarbonate 34, BUN 13, creatinine 1.2, serum glucose 133, lactate 1.7, calcium 7.8, magnesium 1.7, total bilirubin 0.8, AST 10, ALT 22, alkaline phosphatase 62. Troponin I less than 0.015. Chest x-ray: Left lower hemithorax opacity related to left diaphragmatic hernia which appears unchanged since CT of the 03/20/2018. CT of the head, no acute intracranial hemorrhage or mass effect, 7 mm right thalamic hypodensity. This is an age indeterminate lacunar infarct, but is likely subacute to chronic. EKG: Shows a junctional rhythm with occasional PVCs, rate of 112. ASSESSMENT AND PLAN: This is a 78-year-old male who presents with stroke-like symptoms and also febrile neutropenia. 1. Stroke-like symptoms, altered mental status, left-sided weakness. Findings of pronator drift and some weakness on the left side. CAT scan showing right thalamic lesion could be subacute to chronic. History of old left-sided stroke about 7 years ago. We do not have old image to compare. The patient is already on Lovenox for his deep venous thrombosis. As the timeframe is not known, so TPA was not given and his mental status seemed to be back to baseline after fluids and antibiotics. We will do full stroke workup with MRI of the head, carotid Doppler, echocardiograms, speech evaluation, PT, OT, neurologic consult . We will add aspirin. Follow lipid profile and HbA1c levels. Closely monitor in the tele floor. 2. Febrile neutropenia secondary to chemo. Last chemo was . Lactate is normal. Blood pressure on the lower side and temp spikes. Has neutropenia. We will place him empirically on IV Zosyn and IV vancomycin. Follow the blood culture. Check urine cultures. Monitor the hemodynamics. 3. Pancytopenia, probably from chemo. White count of 1.2, hemoglobin 12.7, platelets 75. We will follow the labs. We will consult Hematology/Oncology for any Neupogen. 4. Electrolyte abnormalities. Will replace. On fluids. Will follow labs. 5. Metastatic adenocarcinoma of the esophagus status post surgery and chemo, recurrent disease. Getting second cycle of chemo as per Hematology/Oncology. Follow up with Hematology/Oncology. 6. Left upper extremity deep venous thrombosis, on Lovenox which we will continue. 7. AAA 3.5cm needs followup. 8. Gastroesophageal reflux disease, on proton pump inhibitor. 9. Chronic kidney disease, stage III. We will follow the labs. 10. Hypothyroidism. Synthroid. 11. Deep venous thrombosis prophylaxis is Lovenox. 12. Disposition: Close monitoring in the tele floor. Level 1 full code as per my discussion with the patient and the family. Social service to help with discharge planning. RUSTYD
[2018-07-11] MEDS ORDERED: SODIUM CHLORIDE 0.9% 1000ML 1,000 ML IV SCH (05:45)
[2018-07-11] MEDS: PIPERACILLIN/TAZOBACTAM 3.375 GM in DEXTROSE 5% 100 ML IV SCH ×3 (05:53→21:35)
[2018-07-11] MEDS: LEVOTHYROXINE SODIUM 50 MCG TABLET PO SCH (05:54)
[2018-07-11 06:24] LABS: Hematocrit (blood only) 29.2 % (42-52); Hemoglobin 9.7 g/dL (14.0-18.0); Mean Corpuscular Hgb Conc 33.2 g/dL (32-36); Mean Corpuscular Volume 93.6 fL (80-100); Mean Platelet Volume 9.6 fL (7.4-10.4); Platelet Count 75 K/uL (130-400); RDW Coefficient of Variation 16.6 % (11.5-14.5); RDW Standard Deviation 56.6 fL (36.4-46.3); Red Blood Count 3.12 M/uL (4.7-6.1)
[2018-07-11 06:40] LABS: BUN Creatinine Ratio 10.2 (10-20); Calcium 6.9 mg/dl (8.5-10.1); Calcium 7.1 mg/dl (8.5-10.1); Creatinine Clr Calc Pharmacy 65.7 ml/min; Est GFR (African American) 79.5; Est GFR (Non-African American) 68.6; Magnesium 1.9 mg/dl (1.8-2.4); Phosphorus 1.8 mg/dl (2.5-4.9); Potassium 3.5 mmol/L (3.5-5.1)
[2018-07-11 06:49] LABS: Dohle Bodies 1+; Lymphocytes % (auto) 35.7 %; Monocytes # (auto) 0.25 K/uL (0.11-0.59); Monocytes % (auto) 17.9 %; Neutrophils # (auto) 0.65 K/uL (1.4-6.5); Neutrophils % (auto) 46.4 %
[2018-07-11 07:31] LABS: Estimated Average Glucose 123 mg/dl
--- NOTE | 2018-07-11 07:38 | Ultrasound Report ---
BILATERAL CAROTID DOPPLER STUDY HISTORY: Stroke symptoms. COMPARISON: None. TECHNIQUE: Real-time, grayscale, and color Doppler sonography of the carotid arteries was performed. Imaging reviewed in the transverse and longitudinal planes. All measurements were calculated based on NASCET criteria. FINDINGS: Antegrade flow is seen in the bilateral vertebral arteries. The brachial pressures were not obtained. Moderate right and mild left carotid bifurcation calcification. The peak systolic velocity within the right ICA is 158 cm/s proximally. The right systolic ratio is 1 .5. The peak systolic velocity within the left ICA is 84 cm/s. The left systolic ratio is 0.9. IMPRESSION: 1. Approximately 50-69% stenosis within the proximal right internal carotid artery. 2. No significant stenosis within the left carotid arteries. 3. There appears to be reversal of flow within the left internal jugular vein with a collateral demon strating normal direction of venous flow. Electronically signed by: Luca Lua M.D. 07/11/2018 7:37 AM
[2018-07-11] MEDS: ENOXAPARIN 80 MG/0.8 ML SYR SQ SCH ×2 (07:51→21:14)
[2018-07-11] MEDS: ASPIRIN 81 MG ECTAB PO SCH (07:51)
[2018-07-11] MEDS ORDERED: POTASSIUM PHOS 3 MMOL/1 ML INFUSION IV STA (07:57)
[2018-07-11] MEDS ORDERED: POTASSIUM PHOSPHATE 30 MMOL in SODIUM CHLORIDE 0.9% 500 ML IV ONE (08:15)
[2018-07-11] MEDS: MoRPHine SULFATE CR 15 MG TABCR PO SCH ×2 (08:37→21:13)
--- NOTE | 2018-07-11 09:15 | Pharmacy Report ---
Pharmacy Abx Initial Consult - Date of Service July 11, 2018 - Pharmacy Dosing Scope Date of Consult: 07/11/18 Consultation requested by: Dr. Mercado Pharmacy is consulted to initiate Vancomycin and Zosyn IV dosing therapy, order appropriate labs and adjust drug dose/frequency. - Subjective The patient is a 78 year old M admitted on 07/10/18 22:07. - Objective Height: 6 ft Weight: 78.6 kg Vital Signs (Past 12hrs): Vital Signs Temp Pulse Pulse Resp BP BP Pulse Ox 07/11/18 07:12 36.9 C 73 18 91/50 L 95 07/11/18 04:06 37.2 C 86 18 96/57 L 93 07/10/18 23:55 37.3 C 101 H 20 104/64 96 07/10/18 22:45 37.4 C 98 H 22 95 07/10/18 22:30 97 H 19 114/59 L 95 07/10/18 22:15 100 H 17 94 07/10/18 22:02 97 H 19 94 07/10/18 22:01 97 H 17 95/61 L 93 07/10/18 22:00 95 H 17 92 07/10/18 21:45 97 H 19 93 07/10/18 21:30 94 H 17 91/55 L 95 07/10/18 21:15 102 H 24 91 Lab Results (24hrs): Laboratory Tests (24 Hours) 07/11/18 07/11/18 07/11/18 05:35 05:35 05:35 WBC 1.40 L Neut # (Auto) 0.65 L* Creatinine 1.05 1.05 Est Cr Clr Drug Dosing 65.7 65.7 07/11/18 07/10/18 07/10/18 05:35 18:47 18:47 WBC Cancelled 1.28 L Neut # (Auto) Cancelled 0.73 L* Creatinine 1.27 Est Cr Clr Drug Dosing Not Reportable Micro Results: 07/11/18 08:30 Urine Culture - Pending Urine,Clean Catch 07/10/18 19:05 Aerobic Blood Culture - Pending Blood Anaerobic Blood Culture - Pending 07/10/18 18:57 Aerobic Blood Culture - Pending Blood Anaerobic Blood Culture - Pending - Risk Factors for Resistance * Immunocompromised (chronic steroid therapy, chemotherapy, immunomodulators) - Assessment & Plan Assessment 78 year old M presents with febrile neutropenia, on chemotherapy. Empiric Vancomycin and Zosyn started pending culture results. Plan Vancomycin IV * Estimated PK Parameters: Be 0.059 hr-1, t1/2 10.8 hr * Loading dose: 1750 mg (~22 mg/kg) * Maintenance dose: 1250 mg IV (~16 mg/kg) every 12 hours * Goal trough level for sepsis : 15 to 20 mcg/mL * Given empiric indication, will not order a trough level at this time. If therapy to be extended beyond 48 hours, will order trough Piperacillin/tazobactam * 4.5 g bolus administered over 30 minutes, then 3.375 g IV extended infusion every 8 hours for CrCl greater than 20 mL/min Pharmacy will continue to follow and will adjust dose/frequency as necessary. Thank you.
[2018-07-11] MEDS ORDERED: GADOBUTROL 65ML VIAL IV PRN (10:15)
--- NOTE | 2018-07-11 10:42 | Magnetic Resonance Report ---
Brain MRI WITH AND WITHOUT CONTRAST HISTORY: Unresponsive. Lightheadedness. TECHNIQUE: Multiplanar multisequence MRI of the brain was performed both before and after the intrave nous administration of contrast. COMPARISON STUDY: Head CT 07/10/2018. FINDINGS: There is no mass, hematoma, midline shift, or acute infarct. The paranasal sinuses are lizet r. The mastoid air cells are clear. The ventricles and sulci demonstrate mild age-related involutiona l changes. Scattered foci of T2 hyperintensity seen within the periventricular and subcortical white matter are nonspecific but suggestive of mild microvascular ischemic changes. The major vascular flow voids at the skull base are well-maintained. Focal subcortical hypodensity within the right parietal lobe posteriorly with mild encephalomalacia. This may be due to an old infarct. There are also old l acunar infarcts within the right basal ganglia. There appears to be a 3 mm focus of enhancement withi n the right cerebral hemisphere best seen on axial image 6 of 22. IMPRESSION: 1. No acute infarct. 2. Old small right-sided infarcts as described above. 3. Possible 3 mm focus of enhancement within the right cerebellar hemisphere. One month brain MRI fol low-up is recommended to assess for the possibility of a metastatic focus given the patient's history of malignancy. Electronically signed by: Luca Lua M.D. 07/11/2018 10:40 AM
--- NOTE | 2018-07-11 12:41 | Hospitalist Progress Note ---
Date of Service July 11, 2018 Assessment & Plan (1) Altered mental status: Multifactorial-metastatic adenocarcinoma of lower esophagus, possible infection with neutropenia, chemotherapy-induced Possibility of brain metastasis as per MRI report of 3 mm focus of enhancement within the right cerebellar hemisphere Mentation is at his baseline this morning Denies any acute confusion Present on Admission?: Yes (2) Stroke: Presented with strokelike symptoms especially left-sided weakness with a history of stroke in past Old small right-sided infarct identified in CT and MRI of the head Symptoms resolved Await neurology evaluation and recommendation (3) Hx of thyroid disease: No acute thyroid problem (4) Deep vein thrombosis (DVT) of left upper extremity: Has been on Lovenox Denies any symptoms (5) Adenocarcinoma of lower esophagus: Has been getting chemotherapy Remains generally weak and lethargy (6) Hyperlipidemia: Continue current medication (7) Pancytopenia due to chemotherapy: Pancytopenia secondary to chemo Neutropenia with possible fever Urine and blood have been sent for culture and sensitivity Started on vancomycin and Zosyn intravenously Subjective 07/11 The patient was seen and examined in telemetry unit 78 years old with significant past medical history of metastatic adenocarcinoma of the lower third of esophagus with ongoing chemotherapy, history of CVA and other medical condition as mentioned in history and physical was admitted with change in mental status and left-sided weakness. Feels a lot better this morning without any weakness involving the left side Generally weak but denies any other symptoms Review of Systems Review of Systems: All systems reviewed and unremarkable except as noted below Respiratory: + dyspnea (Minimal at rest) Neurologic: + generalized weakness Physical Exam Physical Exam: Lying in bed with minimal shortness of breath at rest Constitutional: + ill appearing Eyes: PERRL, conjunctivae normal, anicteric sclerae ENMT: external ear and nose normal, oropharynx normal Neck: trachea midline, no thyromegaly Respiratory: + respiratory distress Auscultation: + diminished lung sounds and + crackles (Minimal crackles at the bases) Cardiovascular: Rate/Rhythm: regular rate and regular rhythm Gastrointestinal (Abdomen): Inspection/Auscultation: abdomen normal to inspection and normal bowel sounds Musculoskeletal: Extremities: strength 5/5 throughout Neurologic: PERRL, EOMI, accommodation nl, no face palsy, no dysarthria Lymphatic: no cervical or axillary lymphadenopathy Results & Data Vital Signs (Past 12 Hours) Vital Signs Temp Pulse Resp BP Pulse Ox 07/11/18 11:15 36.9 C 84 17 87/58 L 96 07/11/18 07:12 36.9 C 73 18 91/50 L 95 07/11/18 04:06 37.2 C 86 18 96/57 L 93 Laboratory Results Short CBC 07/10/18 07/11/18 07/11/18 Range/Units 18:47 05:35 05:35 WBC 1.28 L Cancelled 1.40 L (4.8-10.8) K/uL Hgb 12.3 L Cancelled 9.7 L (14.0-18.0) g/dL Hct 37.3 L Cancelled 29.2 L (42-52) % Plt Count 75 L Cancelled 75 L (130-400) K/uL BMP 07/10/18 07/11/18 07/11/18 18:47 05:35 05:35 Sodium 132 L 135 L 134 L Potassium 2.9 L 3.5 D 3.5 Chloride 91 L 101 100 Carbon Dioxide 34 H 28 29 BUN 13 11 12 Creatinine 1.27 1.05 1.05 Glucose 131 H 107 H 106 H Calcium 7.8 L 7.1 L 6.9 L Cardiac Enzymes 07/10/18 Range/Units 18:47 Troponin I < 0.015 (0-0.045) ng/ml Liver Function 07/10/18 Range/Units 18:47 Total Bilirubin 0.8 (0.2-1) mg/dl AST 10 L (15-37) U/L ALT 12 (12-78) U/L Alkaline Phosphatase 62 (45-117) U/L Albumin 2.9 L (3.4-5.0) gm/dl Medications Administered Current Inpatient Medications Acetaminophen (Tylenol) 650 mg PO Q4H PRN PRN Reason: Pain or Fever Stop: 08/09/18 23:13 Aspirin (Ecotrin Ectab) 81 mg PO QAM [facility] Stop: 08/10/18 08:59 Last Admin: 07/11/18 07:51 Dose: 81 mg Documented by: Cyanocobalamin (Vitamin B-12) 1,000 mcg IM TODAY@0900 [facility] Stop: 07/14/18 09:01 Enoxaparin Sodium (Lovenox) 70 mg SQ Q12 [facility] Stop: 08/10/18 08:59 Last Admin: 07/11/18 07:51 Dose: 70 mg Documented by: Gadobutrol (Gadavist 65ml) 7.5 ml IV ONCE PRN PRN Reason: Interaction Checking Stop: 07/15/18 10:14 Last Admin: 07/11/18 10:16 Dose: 7.5 ml Documented by: Heparin Sodium (Porcine) (Heparin Sod 100 Unit/Ml Flush) 5 ml FLUSH PRN PRN PRN Reason: Flush Stop: 08/10/18 01:44 Sodium Chloride (Nss 1000ml) 1,000 mls @ 125 mls/hr IV .Q8H [facility] Stop: 08/09/18 23:13 Last Infusion: 07/11/18 10:54 Dose: 25 mls/hr Documented by: Piperacillin Sod/Tazobactam (Sod 3.375 gm/ Dextrose) 115 mls @ 28.75 mls/hr IV Q8H [facility]; Protocol Stop: 07/13/18 05:59 Last Infusion: 07/11/18 10:54 Dose: 30 mls/hr Documented by: Potassium Phosphate 30 mmol/ (Sodium Chloride) 510 mls @ 102 mls/hr IV ONE ONE Stop: 07/11/18 13:14 Last Infusion: 07/11/18 10:55 Dose: 102 mls/hr Documented by: Vancomycin HCl 1,250 mg/ (Sodium Chloride) 275 mls @ 125 mls/hr IV Q12H [facility] Stop: 07/13/18 13:59 Levothyroxine Sodium (Synthroid) 100 mcg PO DAILYBB [facility] Stop: 08/10/18 06:29 Last Admin: 07/11/18 05:54 Dose: 100 mcg Documented by: Miscellaneous Information (Consult) 1 ea N/A UD PRN PRN Reason: Consult Stop: 08/09/18 23:13 Miscellaneous Information (Pharmacist Discharge Med Rec Consult) 1 ea N/A UD PRN PRN Reason: Consult Stop: 08/09/18 23:13 Miscellaneous Information (Consult) 1 ea N/A UD PRN PRN Reason: Consult Stop: 08/09/18 23:13 Morphine Sulfate (Ms Contin) 15 mg PO Q12 [facility] Stop: 07/25/18 08:59 Last Admin: 07/11/18 08:37 Dose: 15 mg Documented by: Nitroglycerin (Nitrostat) 0.4 mg SL UD PRN PRN Reason: Chest Pain Stop: 08/09/18 23:13 Ondansetron HCl (Zofran) 4 mg IV Q6H PRN PRN Reason: Nausea Stop: 08/09/18 23:13 Oxycodone/Acetaminophen (Percocet 5mg/325mg) 1 tab PO Q6 PRN PRN Reason: MODERATE PAIN Stop: 07/24/18 23:13 Prochlorperazine (Compazine) 10 mg PO Q6 PRN PRN Reason: Nausea Stop: 08/09/18 23:13 Ranitidine HCl (Zantac) 150 mg PO BID JACOB Stop: 08/10/18 08:59 Last Admin: 07/11/18 07:51 Dose: 150 mg Documented by: (1) Altered mental status Altered mental status type: transient alteration of awareness Qualified Code(s): R40.4 - Transient alteration of awareness (2) Stroke CVA mechanism: unspecified Qualified Code(s): I63.9 - Cerebral infarction, unspecified
[2018-07-11] MEDS ORDERED: PERFLUTREN LIPID MICROSPHERE (DEFINITY) IV ONE (13:14)
--- NOTE | 2018-07-11 13:15 | Neurology Consultation ---
Date of Consultation July 11, 2018 History of Present Illness Attending Physician: Brendan Duran MD Assessment / Plan: Encephalopathy - RESOLVED Neutropenic Fever Lower esophageal adenocarcinoma S/P neoadjuvant modified FOLFOX 6 [id number] with radiation treatment. Recurrent disease involving the AP window lymph node, right infraspinatus muscle, right paraspinal muscle, right 7th rib. (03/2018). S/P esophagectomy and lymph node dissection on 04/07/2017 Dysphagia History of stroke Coagulopathy Left upper extremity DVT (05/12/2018) on lovenox (left sided [place]) Right ICA Stenosis A 78 yea old male with history of right MCA distribution lacunar infarcts with moderate RIGHT ICA stenosis on carotid US admitted with suspected metabolic infectious encephalopathy, no improved. He is currently back to baseline although noting asthenia with his chemotherapy treatment. No focal weakness noted. Comprehension intact. Oriented to person, place, and time. MRI brain reviewed and discussed with patient and . No evidence of acute stroke or hemorrhage. Old right subcortical infarcts. Radiology noted possible right cerebellar enhancement concerning for possible metastatic disease given his history of cancer. - Agree with repeat MRI brain w/wo contrast in 4-weeks to follow up possible lesion in right cerebellum. Discussed with family. He is already following with hematology / oncology as outpatient - Discussed carotid US findings with patient. Recommend outpatient Vascular surgery follow up if patient desires. Recommend to continue home ASA for secondary stroke prevention. - Agree with continuing infectious work / treatment. Cultures pending. Please call me with any further questions or concerns. History of Present Illness A 78-year-old male admitted for yesterday for encephalopathy and possible left- sided weakness. Patient has an extensive past medical history including esophageal adenocarcinoma currently receiving chemotherapy and following closely with hematology and oncology. He does have a history of a stroke with reported left-sided symptoms in the past however per chart review it does not not appear he has any residual left-sided deficits. He is currently on weight-based Lovenox for left upper extremity DVT discovered in April 2018. He does have a left upper extremity port. In the ED patient was noted to have mild fever and neutropenic. Blood cultures were ordered. Did receive a dose of antibiotics. Urine cultures are pending. MRI brain was completed upon admission and was negative for acute ischemic stroke however did show an area of possible enha ncement in the cerebellum concerning for metastatic disease. Neurology was consulted on admission for concern for stroke. Allergies Allergy/AdvReac Type Severity Reaction Status Date / Time No Known Allergies Allergy Verified 07/10/18 19:09 Home Medications Home Medications Medication Instructions Recorded Confirmed Type cyanocobalamin (vitamin B-12) 1,000 mcg IM .Q4 WEEKS 07/10/18 07/10/18 History dexamethasone 4 mg PO UD 07/10/18 07/10/18 History enoxaparin [Lovenox] 70 mg SUBCUT Q12 07/10/18 07/10/18 History hydrochlorothiazide 25 mg PO DAILY PRN 07/10/18 07/10/18 History levothyroxine 100 mcg PO DAILY 07/10/18 07/10/18 History morphine [MS Contin] 15 mg PO Q12 07/10/18 07/10/18 History ondansetron HCl [Zofran] 4 mg PO Q8 PRN 07/10/18 07/10/18 History oxycodone-acetaminophen [Percocet] 1 tab PO Q6 PRN 07/10/18 07/10/18 History prochlorperazine maleate 10 mg PO Q6 PRN 07/10/18 07/10/18 History ranitidine HCl [Zantac] 150 mg PO BID 07/10/18 07/10/18 History Patient History Social History Preferred Language: Swedish Communication Ability: Effective Medication Manager Required: No Beliefs That Will Affect Care: None marital status: Current Living Situation: Spouse current occupational status: retired Other Information That Helps Us Care for You: No Feels Safe at Home: Yes Safety Concerns: Feels Safe At This Time Smoking Status: Never smoker Tobacco Type: cigarettes Do You Dip or Chew Tobacco: No Second Hand Exposure: No Hx Alcohol Use: No Hx Substance Use: No Physical Exam Physical Exam: EXAM: Constitutional: appears chronically ill Head and Face: normocephalic and atraumatic Eyes: normal lids, normal conjunctiva Neck: supple Respiratory: normal effort Cardiovascular: normal pulses Abdomen: non distended Skin: no rashes, lesions, or ulcers noted Psychiatric: normal judgement and insight, normal mood and normal affect NEUROLOGIC EXAMINATION: Appearance: no acute distress Orientation: awake, alert and oriented to person, place, and time Mental Status: alert Memory: Ok Attention: normal Knowledge: appropriate Language: no aphasia Speech: no dysarthria Cranial Nerves: CN 2 - no visual defect on confrontation CN 3, 4, 6 - extra-ocular movements intact and no nystagmus CN 5 - facial sensation intact CN 7 - no facial asymmetry CN 8 - intact hearing CN 9, 10 - palate symmetric CN 11 - good shoulder shrug CN 12 - tongue midline Gait: deferred Coordination: no ataxia with finger to nose testing , no tremor Sensory: intact and symmetric to pinprick, light touch, vibration and joint position Muscle Tone: normal Muscle exam: 5/5 in upper and lower extremities Reflexes: no adamson, no clonus Reflexes: Results & Data Vital Signs (Past 12 Hours) Vital Signs Temp Pulse Resp BP Pulse Ox 07/11/18 11:15 36.9 C 84 17 87/58 L 96 07/11/18 07:12 36.9 C 73 18 91/50 L 95 07/11/18 04:06 37.2 C 86 18 96/57 L 93 Diagnostic Findings Carotid US: 1. Approximately 50-69% stenosis within the proximal right internal carotid artery. 2. No significant stenosis within the left carotid arteries. 3. There appears to be reversal of flow within the left internal jugular vein with a collateral demonstrating normal direction of venous flow. MRI Brain w/wo on 07/11/2018: 1. No acute infarct. 2. Old small right-sided infarcts as described above. 3. Possible 3 mm focus of enhancement within the right cerebellar hemisphere. One month brain MRI follow-up is recommended to assess for the possibility of a metastatic focus given the patient's history of malignancy.
[2018-07-11] MEDS: VANCOMYCIN HCL 1,250 MG in SODIUM CHLORIDE 0.9% 250 ML IV SCH (13:17)
[2018-07-11 15:16] LABS: Appearance Urine Clear (Clear); Bacteria Urine Automated Negative (Negative); Bilirubin Urine Negative (Negative); Color Urine Dark Yellow; Glucose Urine UA Negative (Negative); Ketones Urine Negative (Negative); Leukocyte Esterase Urine Negative (Negative); Nitrite Urine Negative (Negative); Specific Gravity Urine 1.026 (1.000-1.030); Urobilinogen Urine Negative (Negative)
[2018-07-11 15:18] LABS: Protein Urine Negative (Negative)
[2018-07-11] MEDS: ALBUTEROL 0.083% NEBU SOLN 3 ML VIAL NEB PRN (17:33)
[2018-07-11] MEDS ORDERED: Nursing to Pharmacy Communication ONE (18:26)
[2018-07-12] MEDS: SODIUM CHLORIDE 0.9% 1000ML 1,000 ML IV SCH (00:54)
[2018-07-12] MEDS: VANCOMYCIN HCL 1,250 MG in SODIUM CHLORIDE 0.9% 250 ML IV SCH ×2 (02:34→13:56)
[2018-07-12 05:11] LABS: BUN Creatinine Ratio 6.9 (10-20); Calcium 7.3 mg/dl (8.5-10.1); Creatinine Clr Calc Pharmacy 68.3 ml/min; Est GFR (African American) 83.4; Est GFR (Non-African American) 71.9; Magnesium 1.7 mg/dl (1.8-2.4); Phosphorus 2.1 mg/dl (2.5-4.9); Potassium 3.5 mmol/L (3.5-5.1)
[2018-07-12] MEDS: ALBUTEROL 0.083% NEBU SOLN 3 ML VIAL NEB PRN ×3 (05:11→18:58)
[2018-07-12 05:24] LABS: Hematocrit (blood only) 30.2 % (42-52); Hemoglobin 10.1 g/dL (14.0-18.0); Mean Corpuscular Hgb Conc 33.4 g/dL (32-36); Mean Corpuscular Volume 92.6 fL (80-100); Platelet Count 89 K/uL (130-400); RDW Coefficient of Variation 16.6 % (11.5-14.5); RDW Standard Deviation 56.3 fL (36.4-46.3); Red Blood Count 3.26 M/uL (4.7-6.1)
[2018-07-12] MEDS: PIPERACILLIN/TAZOBACTAM 3.375 GM in DEXTROSE 5% 100 ML IV SCH ×3 (05:57→22:17)
[2018-07-12] MEDS: LEVOTHYROXINE SODIUM 50 MCG TABLET PO SCH (05:58)
[2018-07-12 06:16] LABS: Immature Granulocytes # (auto) 0.01 K/uL (0.00-0.02); Immature Granulocytes % (auto) 0.6 %; Lymphocytes # (auto) 0.61 K/uL (1.2-3.4); Lymphocytes % (auto) 38.1 %; Monocytes # (auto) 0.33 K/uL (0.11-0.59); Monocytes % (auto) 20.6 %; Neutrophils % (auto) 40.7 %
[2018-07-12 06:18] LABS: Neutrophils # (auto) 0.65 K/uL (1.4-6.5)
[2018-07-12] MEDS ORDERED: POTASSIUM PHOS 3 MMOL/1 ML INFUSION IV STA (08:19)
[2018-07-12] MEDS ORDERED: POTASSIUM PHOSPHATE 30 MMOL in SODIUM CHLORIDE 0.9% 500 ML IV ONE (08:30)
[2018-07-12] MEDS: ASPIRIN 81 MG ECTAB PO SCH (08:34)
[2018-07-12] MEDS: ENOXAPARIN 80 MG/0.8 ML SYR SQ SCH ×2 (08:34→20:39)
[2018-07-12] MEDS: MoRPHine SULFATE CR 15 MG TABCR PO SCH ×2 (08:34→20:39)
--- NOTE | 2018-07-12 09:41 | XRay Report ---
XR chest 2V routine CLINICAL HISTORY: R/O Chf. Esophageal cancer. COMPARISON STUDY: PET/CT June 10, 2018. Chest radiograph July 10, 2018. FINDINGS: Left subclavian [id number] is in place. There is no pneumothorax. Opacity within the lef t lower hemithorax is again noted in large part due to a diaphragmatic hernia. This is unchanged. A s uspected small left pleural effusion is noted with left basilar opacity. There is no evidence for pul monary edema. IMPRESSION: 1. Left lower hemithorax opacity which is in large part due to a diaphragmatic hernia shown on prior exams. Possible superimposed left pleural effusion with left basilar opacity. 2. No evidence for pulmonary edema. Electronically signed by: Alvin Andrew M.D. 07/12/2018 9:40 AM
--- NOTE | 2018-07-12 12:05 | Hospitalist Progress Note ---
Date of Service July 12, 2018 Assessment & Plan (1) Altered mental status: Multifactorial-metastatic adenocarcinoma of lower esophagus, possible infection with neutropenia, chemotherapy-induced Possibility of brain metastasis as per MRI report of 3 mm focus of enhancement within the right cerebellar hemisphere Mentation is at his baseline this morning Denies any acute confusion Blood and urine cultures are negative so far (2) Stroke: Presented with strokelike symptoms especially left-sided weakness with a history of stroke in past Old small right-sided infarct identified in CT and MRI of the head Symptoms resolved Await neurology evaluation and recommendation-appreciate input and recommendation Clinically no residual effect of stroke Continue physical therapy as recommended Likely be discharged tomorrow (3) Hx of thyroid disease: No acute thyroid problem (4) Deep vein thrombosis (DVT) of left upper extremity: Has been on Lovenox Denies any symptoms (5) Adenocarcinoma of lower esophagus: Has been getting chemotherapy Remains generally weak and lethargy We will discuss about palliative care and possible hospice home (6) Hyperlipidemia: Continue current medication (7) Pancytopenia due to chemotherapy: Pancytopenia secondary to chemo Neutropenia with possible fever Urine and blood have been sent for culture and sensitivity Started on vancomycin and Zosyn intravenously No infective source identified, will stop antibiotics after 48 hours of initiation Likely discharge tomorrow Subjective 07/11 The patient was seen and examined in telemetry unit 78 years old with significant past medical history of metastatic adenocarcinoma of the lower third of esophagus with ongoing chemotherapy, history of CVA and other medical condition as mentioned in history and physical was admitted with change in mental status and left-sided weakness. Feels a lot better this morning without any weakness involving the left side Generally weak but denies any other symptoms 07/12 Patient was seen and examined in telemetry unit He has had shortness of breath yesterday that is relieved with nebulized bronchodilator Denies any much shortness of breath this morning Denies any other symptoms except generalized weakness Review of Systems Respiratory: + dyspnea (Minimal at rest) Neurologic: + generalized weakness Physical Exam Physical Exam: No apparent distress at rest Constitutional: + ill appearing Eyes: PERRL, conjunctivae normal, anicteric sclerae ENMT: external ear and nose normal, oropharynx normal Neck: trachea midline, no thyromegaly Respiratory: Auscultation: + diminished lung sounds (Mostly left base); no crackles and no wheezes Cardiovascular: Rate/Rhythm: regular rate and regular rhythm Gastrointestinal (Abdomen): Inspection/Auscultation: abdomen normal to inspection and normal bowel sounds Musculoskeletal: Extremities: strength 5/5 throughout Neurologic: PERRL, EOMI, accommodation nl, no face palsy, no dysarthria Lymphatic: no cervical or axillary lymphadenopathy Results & Data Vital Signs (Past 12 Hours) Vital Signs Temp Pulse Resp BP Pulse Ox 07/12/18 10:55 36.6 C 81 20 93/58 L 100 07/12/18 07:03 37.2 C 95 H 18 96/54 L 97 07/12/18 05:11 94 H 20 95 07/12/18 03:43 37.0 C 97 H 18 97/58 L 96 Laboratory Results Short CBC 07/12/18 Range/Units 04:35 WBC 1.60 L (4.8-10.8) K/uL Hgb 10.1 L (14.0-18.0) g/dL Hct 30.2 L (42-52) % Plt Count 89 L (130-400) K/uL BMP 07/12/18 04:35 Sodium 136 Potassium 3.5 Chloride 105 Carbon Dioxide 27 BUN 7 D Creatinine 1.01 Glucose 94 Calcium 7.3 L Urine 07/11/18 Range/Units Unknown Urine Color Dark Yellow Urine Appearance Clear (Clear) Urine pH 8.0 H (4.5-7.5) Ur Specific [place] 1.026 (1.000-1.030) Urine Protein Negative (Negative) Urine Glucose (UA) Negative (Negative) Medications Administered Current Inpatient Medications Acetaminophen (Tylenol) 650 mg PO Q4H PRN PRN Reason: Pain or Fever Stop: 08/09/18 23:13 Albuterol (Ventolin 0.083% 2.5mg/3ml) 2.5 mg NEB Q6R PRN PRN Reason: Dyspnea Stop: 08/10/18 17:08 Last Admin: 07/12/18 05:11 Dose: 2.5 mg Documented by: Aspirin (Ecotrin Ectab) 81 mg PO QAM [facility] Stop: 08/10/18 08:59 Last Admin: 07/12/18 08:34 Dose: 81 mg Documented by: Cyanocobalamin (Vitamin B-12) 1,000 mcg IM TODAY@0900 [facility] Stop: 07/14/18 09:01 Enoxaparin Sodium (Lovenox) 70 mg SQ Q12 [facility] Stop: 08/10/18 08:59 Last Admin: 07/12/18 08:34 Dose: 70 mg Documented by: Gadobutrol (Gadavist 65ml) 7.5 ml IV ONCE PRN PRN Reason: Interaction Checking Stop: 07/15/18 10:14 Last Admin: 07/11/18 10:16 Dose: 7.5 ml Documented by: Heparin Sodium (Porcine) (Heparin Sod 100 Unit/Ml Flush) 5 ml FLUSH PRN PRN PRN Reason: Flush Stop: 08/10/18 01:44 Sodium Chloride (Nss 1000ml) 1,000 mls @ 75 mls/hr IV .[id number] [facility] Stop: 08/09/18 23:13 Last Infusion: 07/12/18 09:00 Dose: 0 mls/hr Documented by: Piperacillin Sod/Tazobactam (Sod 3.375 gm/ Dextrose) 115 mls @ 28.75 mls/hr IV Q8H [facility]; Protocol Stop: 07/13/18 05:59 Last Infusion: 07/12/18 10:03 Dose: Infused Documented by: Vancomycin HCl 1,250 mg/ (Sodium Chloride) 275 mls @ 125 mls/hr IV Q12H [facility] Stop: 07/13/18 13:59 Last Infusion: 07/12/18 04:47 Dose: Infused Documented by: Potassium Phosphate 30 mmol/ (Sodium Chloride) 510 mls @ 102 mls/hr IV ONE ONE Stop: 07/12/18 13:29 Last Admin: 07/12/18 08:59 Dose: 102 mls/hr Documented by: Levothyroxine Sodium (Synthroid) 100 mcg PO DAILYBB [facility] Stop: 08/10/18 06:29 Last Admin: 07/12/18 05:58 Dose: 100 mcg Documented by: Miscellaneous Information (Consult) 1 ea N/A UD PRN PRN Reason: Consult Stop: 08/09/18 23:13 Miscellaneous Information (Consult) 1 ea N/A UD PRN PRN Reason: Consult Stop: 08/09/18 23:13 Morphine Sulfate (Ms Contin) 15 mg PO Q12 [facility] Stop: 07/25/18 08:59 Last Admin: 07/12/18 08:34 Dose: 15 mg Documented by: Nitroglycerin (Nitrostat) 0.4 mg SL UD PRN PRN Reason: Chest Pain Stop: 08/09/18 23:13 Ondansetron HCl (Zofran) 4 mg IV Q6H PRN PRN Reason: Nausea Stop: 08/09/18 23:13 Oxycodone/Acetaminophen (Percocet 5mg/325mg) 1 tab PO Q6 PRN PRN Reason: MODERATE PAIN Stop: 07/24/18 23:13 Prochlorperazine (Compazine) 10 mg PO Q6 PRN PRN Reason: Nausea Stop: 08/09/18 23:13 Ranitidine HCl (Zantac) 150 mg PO BID [facility] Stop: 08/10/18 08:59 Last Admin: 07/12/18 08:34 Dose: 150 mg Documented by: (1) Altered mental status Altered mental status type: transient alteration of awareness Qualified Code(s): R40.4 - Transient alteration of awareness (2) Stroke CVA mechanism: unspecified Qualified Code(s): I63.9 - Cerebral infarction, unspecified
[2018-07-12] MEDS ORDERED: FUROSEMIDE 40 MG/4 ML VIAL IV STA (19:36)
[2018-07-12] MEDS ORDERED: LORazepam 0.25 MG/0.5 ML VIAL IV STA (19:36)
[2018-07-12] MEDS ORDERED: methylPREDNISolone 40 MG in SYRINGE 0 ML IV ONE ×2 (19:50→22:00)
[2018-07-12] MEDS: HEPARIN 100 UNIT/ML 5ML FLUSH FLUSH PRN (20:40)
[2018-07-12] MEDS: IPRATROPIUM BROMIDE NEB SOLN 0.02% 2.5 ML VIAL INH SCH (22:46)
[2018-07-12] MEDS: LEVALBUTEROL 1.25MG/0.5ML NEB INH SCH (22:46)
--- NOTE | 2018-07-12 22:46 | XRay Report ---
XR chest 1V portable HISTORY: Short of breath. COMPARISON: Chest 07/02/2018. FINDINGS: Progressive perihilar interstitial and vascular thickening consistent with pulmonary edema. There are small bilateral pleural effusions, unchanged. The heart remains enlarged. Chronic elevatio n of the left hemidiaphragm is again noted. No pneumothorax. Bibasilar densities favor atelectasis. L eft basilar density consistent with a diaphragmatic hernia. Evidence for gastric pull-through resulti ng in the right mediastinal widening. IMPRESSION: Interval development of mild pulmonary edema. Small bilateral pleural effusions persist. Electronically signed by: Luca Lua M.D. 07/12/2018 10:45 PM
[2018-07-13] MEDS: METOPROLOL TARTRATE 25 MG TAB PO SCH ×2 (00:13→07:54)
[2018-07-13] MEDS: DOXYCYCLINE HYCLATE 100 MG CAP PO SCH ×2 (00:14→07:54)
[2018-07-13] MEDS: LEVALBUTEROL 1.25MG/0.5ML NEB INH SCH ×3 (01:50→13:44)
[2018-07-13] MEDS: IPRATROPIUM BROMIDE NEB SOLN 0.02% 2.5 ML VIAL INH SCH ×3 (01:50→13:44)
[2018-07-13] MEDS: VANCOMYCIN HCL 1,250 MG in SODIUM CHLORIDE 0.9% 250 ML IV SCH (01:53)
[2018-07-13] MEDS ORDERED: XOPENEX/ATROVENT 1.25mg/0.5MG NEB COMBO NEB SCH (02:00)
[2018-07-13] MEDS ORDERED: LEVALBUTEROL 1.25MG/0.5ML NEB INH SCH (02:00)
[2018-07-13] MEDS ORDERED: IPRATROPIUM BROMIDE NEB SOLN 0.02% 2.5 ML VIAL INH SCH (02:00)
[2018-07-13 03:35] LABS: Hematocrit (blood only) 31.5 % (42-52); Hemoglobin 10.6 g/dL (14.0-18.0); Mean Corpuscular Hgb Conc 33.7 g/dL (32-36); Mean Corpuscular Volume 93.2 fL (80-100); Mean Platelet Volume 9.7 fL (7.4-10.4); Platelet Count 105 K/uL (130-400); RDW Coefficient of Variation 16.5 % (11.5-14.5); RDW Standard Deviation 56.5 fL (36.4-46.3); Red Blood Count 3.38 M/uL (4.7-6.1); White Blood Count 0.91 K/uL (4.8-10.8)
[2018-07-13 03:40] LABS: BUN Creatinine Ratio 5.7 (10-20); Calcium 7.7 mg/dl (8.5-10.1); Est GFR (African American) 71.2; Est GFR (Non-African American) 61.5; Lymphocytes # (auto) 0.16 K/uL (1.2-3.4); Lymphocytes % (auto) 17.6 %; Magnesium 1.6 mg/dl (1.8-2.4); Monocytes # (auto) 0.08 K/uL (0.11-0.59); Monocytes % (auto) 8.8 %; Neutrophils # (auto) 0.67 K/uL (1.4-6.5); Neutrophils % (auto) 73.6 %; Potassium 3.7 mmol/L (3.5-5.1); RBC Morphology Unremarkable
[2018-07-13 03:46] LABS: Phosphorus 3.3 mg/dl (2.5-4.9); Troponin I 3.94 ng/ml (0-0.045)
[2018-07-13] MEDS: LEVOTHYROXINE SODIUM 50 MCG TABLET PO SCH (06:30)
[2018-07-13] MEDS: MAGNESIUM SULFATE / D5W 1 GM/100 ML BAG IV SCH ×2 (06:30→07:53)
[2018-07-13] MEDS: SODIUM CHLORIDE 0.9% 1000ML 1,000 ML IV SCH (07:16)
[2018-07-13] MEDS: ASPIRIN 81 MG ECTAB PO SCH (07:54)
[2018-07-13] MEDS: ENOXAPARIN 80 MG/0.8 ML SYR SQ SCH (07:54)
[2018-07-13] MEDS: methylPREDNISolone 40 MG in SYRINGE 0 ML IV SCH ×2 (07:58→13:46)
[2018-07-13] MEDS: MoRPHine SULFATE CR 15 MG TABCR PO SCH (08:49)
--- NOTE | 2018-07-13 10:41 | Hospitalist Progress Note ---
Date of Service July 13, 2018 Assessment & Plan (1) Altered mental status: Multifactorial-metastatic adenocarcinoma of lower esophagus, possible infection with neutropenia, chemotherapy-induced Possibility of brain metastasis as per MRI report of 3 mm focus of enhancement within the right cerebellar hemisphere Mentation is at his baseline this morning Denies any acute confusion Blood and urine cultures are negative so far Will discontinue Zosyn and vancomycin (2) Stroke: Presented with strokelike symptoms especially left-sided weakness with a history of stroke in past Old small right-sided infarct identified in CT and MRI of the head Symptoms resolved Await neurology evaluation and recommendation-appreciate input and recommendation Clinically no residual effect of stroke Continue physical therapy as recommended PT and OT evaluation before discharge (3) Hx of thyroid disease: No acute thyroid problem (4) Deep vein thrombosis (DVT) of left upper extremity: Has been on Lovenox Denies any symptoms (5) Adenocarcinoma of lower esophagus: Has been getting chemotherapy Remains generally weak and lethargy We will discuss about palliative care and possible hospice home Discussed with the and the patient this morning We will get a palliative care consult (6) Hyperlipidemia: Continue current medication (7) Pancytopenia due to chemotherapy: Pancytopenia secondary to chemo Neutropenia with possible fever Urine and blood have been sent for culture and sensitivity Started on vancomycin and Zosyn intravenously No infective source identified, will stop antibiotics after 48 hours of initiation (8) Emphysema of lung: History of smoking in the past CT evidence of emphysema Has been complaining of shortness of breath with wheezing Likely has COPD exacerbation Has been getting intravenous Solu-Medrol and nebulized bronchodilators Doxycycline for possible bronchitis (9) Elevated troponin: Noted to have significantly elevated troponin May have non-ST elevation [place] Cardiology consulted Has been on Lovenox therapeutic dose Denies any chest pain ECHO; this study was technically difficult, LV size is normal, mild concentric LV hypertrophy, no wall motion abnormalities, EF 60 to 65%, aortic valve sclerosis without significant stenosis no evidence of atrial septal defect. Likely discharge today or tomorrow after palliative care consult Subjective 07/11 The patient was seen and examined in telemetry unit 78 years old with significant past medical history of metastatic adenocarcinoma of the lower third of esophagus with ongoing chemotherapy, history of CVA and other medical condition as mentioned in history and physical was admitted with change in mental status and left-sided weakness. Feels a lot better this morning without any weakness involving the left side Generally weak but denies any other symptoms 5/19 Patient was seen and examined in telemetry unit He has had shortness of breath yesterday that is relieved with nebulized bronchodilator Denies any much shortness of breath this morning Denies any other symptoms except generalized weakness 07/13 The patient is seen and examined in telemetry unit He has been having periodic shortness of breath with wheezing for the last 2 days He received intravenous Solu-Medrol and Lasix and also nebulized bronchodilator This morning he has been feeling better and is out of bed on a chair Review of Systems Review of Systems: All systems reviewed and are unremarkable except as noted below Respiratory: + cough, + dyspnea (Minimal at rest) and + wheezing Cardiovascular: no chest pain Neurologic: + generalized weakness Physical Exam Physical Exam: Moderate shortness of breath at rest with wheezing Constitutional: + ill appearing Eyes: PERRL, conjunctivae normal, anicteric sclerae ENMT: external ear and nose normal, oropharynx normal Neck: trachea midline, no thyromegaly Respiratory: + respiratory distress Auscultation: + diminished lung sounds (Mostly left base) and + wheezes (Bilaterally seems to be improved compared with yesterday's) Cardiovascular: Rate/Rhythm: regular rate and regular rhythm Gastrointestinal (Abdomen): Inspection/Auscultation: abdomen normal to inspection and normal bowel sounds Musculoskeletal: Extremities: strength 5/5 throughout Neurologic: PERRL, EOMI, accommodation nl, no face palsy, no dysarthria Lymphatic: no cervical or axillary lymphadenopathy Results & Data Vital Signs (Past 12 Hours) Vital Signs Temp Pulse Resp BP BP Pulse Ox 07/13/18 07:30 36.4 C L 100 H 20 97/66 L 98 07/13/18 07:06 96 H 16 99 07/13/18 01:54 105 H 20 95 07/13/18 00:15 37.0 C 109 H 18 95/63 L 94 07/12/18 22:47 107 H 18 98 Laboratory Results Short CBC 07/13/18 Range/Units 03:09 WBC 0.91 L* (4.8-10.8) K/uL Hgb 10.6 L (14.0-18.0) g/dL Hct 31.5 L (42-52) % Plt Count 105 L (130-400) K/uL BMP 07/13/18 03:09 Sodium 137 Potassium 3.7 Chloride 104 Carbon Dioxide 26 BUN 7 Creatinine 1.15 Glucose 194 H Calcium 7.7 L Cardiac Enzymes 07/12/18 07/13/18 Range/Units 21:44 03:09 Troponin I 6.120 H* 3.940 H* (0-0.045) ng/ml Medications Administered Current Inpatient Medications Acetaminophen (Tylenol) 650 mg PO Q4H PRN PRN Reason: Pain or Fever Stop: 08/09/18 23:13 Albuterol (Ventolin 0.083% 2.5mg/3ml) 2.5 mg NEB Q6R PRN PRN Reason: Dyspnea Stop: 08/10/18 17:08 Last Admin: 07/12/18 18:58 Dose: 2.5 mg Documented by: Aspirin (Ecotrin Ectab) 81 mg PO QAM [facility] Stop: 08/10/18 08:59 Last Admin: 07/13/18 07:54 Dose: 81 mg Documented by: Cyanocobalamin (Vitamin B-12) 1,000 mcg IM TODAY@0900 [facility] Stop: 07/14/18 09:01 Doxycycline Hyclate (Vibramycin) 100 mg PO BID [facility] Stop: 07/19/18 21:59 Last Admin: 07/13/18 07:54 Dose: 100 mg Documented by: Enoxaparin Sodium (Lovenox) 70 mg SQ Q12 [facility] Stop: 08/10/18 08:59 Last Admin: 07/13/18 07:54 Dose: 70 mg Documented by: Gadobutrol (Gadavist 65ml) 7.5 ml IV ONCE PRN PRN Reason: Interaction Checking Stop: 07/15/18 10:14 Last Admin: 07/11/18 10:16 Dose: 7.5 ml Documented by: Heparin Sodium (Porcine) (Heparin Sod 100 Unit/Ml Flush) 5 ml FLUSH PRN PRN PRN Reason: Flush Stop: 08/10/18 01:44 Last Admin: 07/12/18 20:40 Dose: 5 ml Documented by: Methylprednisolone 40 mg/ (Syringe) 0.64 mls @ 1.5 mls/min IV TID [facility] Stop: 08/12/18 08:59 Last Admin: 07/13/18 07:58 Dose: 1.5 mls/min Documented by: Ipratropium [place] (Atrovent 0.02% 0.5mg/2.5ml) 0.5 mg INH Q6R [facility] Stop: 08/11/18 21:59 Last Admin: 07/13/18 07:06 Dose: 0.5 mg Documented by: Levalbuterol HCl (Xopenex 1.25mg/0.5ml Neb) 1.25 mg INH Q6R [facility] Stop: 08/11/18 21:59 Last Admin: 07/13/18 07:06 Dose: 1.25 mg Documented by: Levothyroxine Sodium (Synthroid) 100 mcg PO DAILYBB [facility] Stop: 08/10/18 06:29 Last Admin: 07/13/18 06:30 Dose: 100 mcg Documented by: Metoprolol Tartrate (Lopressor) 12.5 mg PO BID [facility] Stop: 08/11/18 22:44 Last Admin: 07/13/18 07:54 Dose: 12.5 mg Documented by: Morphine Sulfate (Ms Contin) 15 mg PO Q12 [facility] Stop: 07/25/18 08:59 Last Admin: 07/13/18 08:49 Dose: 15 mg Documented by: Nitroglycerin (Nitrostat) 0.4 mg SL UD PRN PRN Reason: Chest Pain Stop: 08/09/18 23:13 Ondansetron HCl (Zofran) 4 mg IV Q6H PRN PRN Reason: Nausea Stop: 08/09/18 23:13 Oxycodone/Acetaminophen (Percocet 5mg/325mg) 1 tab PO Q6 PRN PRN Reason: MODERATE PAIN Stop: 07/24/18 23:13 Prochlorperazine (Compazine) 10 mg PO Q6 PRN PRN Reason: Nausea Stop: 08/09/18 23:13 Last Admin: 07/13/18 09:45 Dose: 10 mg Documented by: Ranitidine HCl (Zantac) 150 mg PO BID [facility] Stop: 08/10/18 08:59 Last Admin: 07/13/18 07:53 Dose: 150 mg Documented by: (1) Altered mental status Altered mental status type: transient alteration of awareness Qualified Code(s): R40.4 - Transient alteration of awareness (2) Stroke CVA mechanism: unspecified Qualified Code(s): I63.9 - Cerebral infarction, unspecified
[2018-07-13] MEDS ORDERED: METOPROLOL TARTRATE 25 MG TAB PO SCH (11:00)
[2018-07-13] MEDS: HEPARIN 100 UNIT/ML 5ML FLUSH FLUSH PRN (13:46)
--- NOTE | 2018-07-13 14:18 | Palliative Care Consultation ---
Date of Consultation July 13, 2018 Assessment & Plan (1) Palliative care encounter: This is a 78 year old male who presented to the hospital with altered mental status and increased left sided weakness. The patient is on Lovenox routinely at home and his weakness has improved back to baseline; therefore, no tPA was administered. Additional contributory PMH includes adenocarcinoma of the esophagus which was diagnosed in 2017 for which he is receiving active chemotherapy treatment under Dr. Aguilar with his last dose being last week. He initially received treatment in 2017, and then again March 2018 and has been receiving it routinely eery 3 weeks with altering dosing based on his symptoms. A PET scan did indicate that he was showing positive response. Additional PMH includes: pancytopenia, CVA (8 years ago) MCA lacunar infarct with moderate R ICA stenosis, dyslipidemia, DVT of Right upper extremity, and thyroid disease. The patient is able to perform his ADL's independently and he lives with his and one son lives 200 [address] away for additional assistance. Palliative Care has been consulted for a goals of care conversation. -I met with patient, patient Lisa and patient son, Quentin in room 406. -Shortly after my entering the room, Dr. Juana Aguilar entered the room and together we discussed goals of care. -Patient and family made decision to no longer pursue chemotherapy and, instead, transition to full palliation/hospice care. -Patient does have MSContin 15 mg po Q12 and Percocet 5/325 1 tab Q6 PRN which he has not utilized and his pain is currently not present. -Patient stated that he would like to go home and stay home if possible. -Dr. Aguilar indicated that he is improving and stable hemodynamically, but the patient and family stated that the chemotherapy was too much for him and he 'is done with that' -We did confirm his DNR status and furthermore, completed a POLST form indicating: DNR, Comfort Measures Only with a goal to remain at home, a trial of abx and no artificial hydration or feeding tubes. -We discussed Home Health, Home Health with a transition to Hospice and Hospice. The family has decided that going Home with Hospice Services would fit into their goals best at this time, knowing that they could revoke if needed. -The indicated having the comfort support with medications, etc. would be most comforting to her and the patient smiled and stated "This all sounds good to me" -I spoke with Penny in Case Management who will contact [facility] to arrange Hospice Services at home upon discharge, which is anticipated today or tomorrow morning. -The patient does have a hospital wedge bed and shower chair at home. -PPS: 40% (2) Pancytopenia due to chemotherapy: (3) Adenocarcinoma of lower esophagus: (4) Stroke: CVA mechanism: unspecified Qualified Code(s): I63.9 - Cerebral infarction, unspecified (5) Altered mental status: Altered mental status type: transient alteration of awareness Qualified Code(s): R40.4 - Transient alteration of awareness Supervising Physician Co-Signing Physician Notes Chart reviewed, patient seen and examined, patient's , son at bedside. Collaborated with MAMTA Lima Patient with disease progression while on chemo-patient has decided to forego any further chemo, patient and family requesting hospice referral. PE: Patient awake alert, no acute distress, able to participate in conversation HEENT: EOMI Respirations: Diminished breath sounds at bases bilaterally CV: Regular rate ,positive pitting edema Abdomen: Soft, nontender Agree with above note, assessment and plan as per MAMTA Lima-will continue to follow and assist with medical decision making. History of Present Illness Reason for Consultation: Goals of Care Requesting Physician: Dr. Duran Attending Physician: Brendan Duran MD History of Present Illness This is a 78 year old male who presented to the hospital with altered mental status and increased left sided weakness. Additional contributory PMH includes adenocarcinoma of the esophagus which was diagnosed in 2017 for which he is receiving active chemotherapy treatment under Dr. Aguilar with his last dose being last week, pancytopenia, CVA (8 years ago) MCA lacunar infarct with moderate R ICA stenosis, dyslipidemia and thyroid disease. The patient is on Lovenox routinely at home and his weakness has improved back to baseline; there fore, no tPA was administered. The patient is able to perform his ADL's independently and he lives with his for additional assistance. Palliative Care has been consulted for a goals of care conversation. Please see Assessment and Plan for further details. Thank you kindly for involving Palliative Care with this gentleman. We will follow as needed. Allergies Allergy/AdvReac Type Severity Reaction Status Date / Time No Known Allergies Allergy Verified 07/10/18 19:09 Home Medications Home Medications Medication Instructions Recorded Confirmed Type cyanocobalamin (vitamin B-12) 1,000 mcg IM .Q4 WEEKS 07/10/18 07/10/18 History dexamethasone 4 mg PO UD 07/10/18 07/10/18 History enoxaparin [Lovenox] 70 mg SUBCUT Q12 07/10/18 07/10/18 History hydrochlorothiazide 25 mg PO DAILY PRN 07/10/18 07/10/18 History levothyroxine 100 mcg PO DAILY 07/10/18 07/10/18 History morphine [MS Contin] 15 mg PO Q12 07/10/18 07/10/18 History ondansetron HCl [Zofran] 4 mg PO Q8 PRN 07/10/18 07/10/18 History oxycodone-acetaminophen [Percocet] 1 tab PO Q6 PRN 07/10/18 07/10/18 History prochlorperazine maleate 10 mg PO Q6 PRN 07/10/18 07/10/18 History ranitidine HCl [Zantac] 150 mg PO BID 07/10/18 07/10/18 History aspirin [Enteric Coated Aspirin] 81 mg PO DAILY #30 tab 07/13/18 Rx doxycycline hyclate 100 mg PO BID 7 Days #14 cap 07/13/18 Rx ipratropium-albuterol [Combivent 1 puffs INH Q6H PRN #4 gm 07/13/18 Rx Respimat] metoprolol tartrate 12.5 mg PO BID 30 Days #30 tab 07/13/18 Rx prednisone 10 mg PO UD #26 tab 07/13/18 Rx Patient History Medical History 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) "Dysphagia beginning in September Status post upper GI endoscopy and biopsies 12/06/2016 Adenocarcinoma moderately differentiated Status post staging studies including CTs and head CT Clinical stage T3/4 N1 M0 Plan for combined radiation and chemotherapy followed by 3 cycles of chemotherapy Plan for esophagectomy at [facility] following preoperative chemoradiation" On 12/26/16 17:07 Benito Aguilar wrote "Dysphagia beginning in [place] Status post upper GI endoscopy and biopsies 12/06/2016 Adenocarcinoma moderately differentiated Status post staging studies including CTs and head CT Clinical stage T4b N1 M0 Plan for combined radiation and chemotherapy followed by 3 cycles of chemotherapy" On 12/26/16 11:45 Mary Rodriguez wrote "Dysphagia beginning in September Status post upper GI endoscopy and biopsies 12/06/2016 Adenocarcinoma moderately differentiated Status post staging studies including CTs and head CT Clinical stage T4b N2 M0 Plan for combined radiation and chemotherapy followed by 3 cycles of chemotherapy" Radiation thyroiditis (Chronic) Surgical History H/O esophagectomy Family History Other Family history non-contributory Social History Preferred Language: Welsh Communication Ability: Effective Hotel Front Desk Agent Required: No Beliefs That Will Affect Care: None marital status: Current Living Situation: Spouse current occupational status: retired Other Information That Helps Us Care for You: No Feels Safe at Home: Yes Safety Concerns: Feels Safe At This Time Smoking Status: Never smoker Tobacco Type: cigarettes Do You Dip or Chew Tobacco: No Second Hand Exposure: No Hx Alcohol Use: No Hx Substance Use: No Review of Systems Review of Systems: General: Patient denies pain HEENT: Pt denies ROGEL, dizziness, visual changes CV: Pt denies chest pain, palpitations Resp: Pt denies breathing changes, now that he is on O2 GI: Pt denies abdominal pain, N/V/D. Appetite ok in the hospital, not at home : Pt denies urinary changes Skin: pt denies skin changes Psych: Pt denies depression, (+) anxiety Physical Exam Constitutional: well developed, cooperative and comfortable Eyes: PERRL, conjunctivae normal, anicteric sclerae ENMT: external ear and nose normal, oropharynx normal Neck: trachea midline, no thyromegaly Respiratory: normal respiratory effort (on 2lnc) and + cough Auscultation: + wheezes Cardiovascular: Rate/Rhythm: regular rate and regular rhythm Heart Sounds: normal S1 and normal S2 Extremities: + edema (+2 LE, L arm >R arm) Gastrointestinal (Abdomen): normal bowel sounds, soft, nontender, no hepatosplenomegaly Musculoskeletal: no cyanosis or clubbing, extremities motor strength 5/5 (stength has returned to baseline status) Skin: + dry skin and + pallor Psychiatric: A+Ox3, euthymic affect Affect: euthymic affect Thought Process: goal directed thought process Insight: good insight Judgement: good judgement Genitourinary: deferred Lymphatic: no cervical or axillary lymphadenopathy Results & Data Vital Signs (Past 12 Hours) Vital Signs Temp Pulse Resp BP BP Pulse Ox 07/13/18 13:44 76 16 99 07/13/18 11:34 36.4 C L 85 17 93/65 L 98 07/13/18 07:30 36.4 C L 100 H 20 97/66 L 98 07/13/18 07:06 96 H 16 99 Time Spent Midlevel Total time spent 100 minutes with > 50% of that time spent reviewing the chart, assessing the patient, discussing goals of care, and completing a POLST form at the bedside. Attending Time spent-30 minutes in addition to 100 minutes spent by MAMTA Leblanc- for a total of 130 minutes with greater than 50% of the time spent at bedside discussing goals of care options for further comfort at home.
--- NOTE | 2018-07-13 16:08 | Oncology Consultation ---
Date of Consultation July 13, 2018 Assessment & Plan (1) Adenocarcinoma of lower esophagus: 78-year-old male, a case of recurrent lower esophageal adenocarcinoma, recently he received 3rd cycle of chemotherapy with cisplatin docetaxel at a different schedule, last cycle received on 07/02/2018. Now admitted for confusional status, left upper lower extremity weakness in addition to generalized weakness, increasing shortness of breath, found to have neutropenia, mild thrombocytopenia, related to recent chemotherapy treatment. No new infection noted in the recent brain MRI, 3 mm focus noted in the brain (right cerebellar hemisphere) which requires follow-up imaging study in about 1 month. Has left approximately edema, he already has left upper extremities DVT, on Lovenox. Blood culture negative, receiving broad-spectrum antibiotic coverage. He and his family is not interested in pursuing further chemotherapy treatment, he has an appointment with me next week. I will keep that appointment, he will also have Anti-Xa level on the same day (4 hour after the Lovenox injection). I'm not planning for further chemotherapy in his case at this time. Will continue MS Contin for symptomatic treatment of abdominal pain. I'm expecting improvement of his clinical condition once he recovers well from the chemotherapy side effects. He will continue to have port flushed every 6 weekly. Thanks for the consult. Bebeto Aguilar MD Hem/Onc History of Present Illness Attending Physician: Brendan Duran MD 78-year-old male, Cancer Diagnosis: Lower esophageal adenocarcinoma S/P neoadjuvant modified FOLFOX 6 [id number] with radiation treatment. Last cycle of chemotherapy received on 02/20/2017 S/P esophagectomy and lymph node dissection on 04/07/2017. Residual 2 mm invasive adenocarcinoma all 18 lymph nodes negative for metastatic disease to, T3 N0 M0 -HER2 negative. Left upper extremity DVT (05/11/2018), he is on Lovenox 70 mg every 12 hourly. Recurrent disease involving the AP window lymph node, right infraspinatus muscle, right paraspinal muscle, right 7th rib. (03/2018). Current treatment: 06/19/2018: -change chemotherapy schedule to cisplatin at 30 mg/m2 and docetaxel at 30 mg/m2 weekly x2 followed by 1 week off. - cisplatin 75 mg/m2 and docetaxel 75 mg/m2 every 3 weekly started on04/20/2018.He received 2 cycles of chemotherapy, imaging studies done after that showed very good response. 05/11/2018--> he is here for cycle 2 chemotherapy with cisplatin and docetaxel but decided to hold because of left upper extremity DVT. 06/08/2018 >Received 2nd cycle of chemotherapy with cisplatin and docetaxel. OTHER IMPORTANT HISTORY: -Hyperlipidemia, -History of CV stroke in the past, has some neurological symptoms involving left upper and lower extremity few years back. Presently he does not have any residual neurological symptoms. -History ofaccidentalfall with head injury earlier in May,, has some mild hemorrhagic changes noted in the imaging studies done at that time (left lateral ventricle as well as posterior right frontal lobe), did not require any surgical intervention. He came to [facility] ER on 07/10/2018 for some acute confusional status, some left-sided weakness. He had brain imaging, no acute infarction noted. Feeling quite weak and tired, no nausea or vomiting. Had low- grade fever. Lately noticed to some increasing abdominal discomfort, he is on MS Contin 15 mg twice a day, also had a leg edema, takes hydrochlorothiazide for the simple treatment, had left approximately DVT, on Lovenox, twice-a-day. I saw him at bedside, yesterday he had increasing shortness of breath, that could be acute anxiety episode, at present he says that he's feeling much better, does not have increasing shortness of breath, he is on oxygen treatment at 2 L per minute, no nausea or vomiting, no fever, receiving broad-spectrum an tibiotic coverage, blood culture negative so far. No leg edema at this time. Left upper extremity edema noted. He has left-sided port,. Allergies Allergy/AdvReac Type Severity Reaction Status Date / Time No Known Allergies Allergy Verified 07/10/18 19:09 Home Medications Home Medications Medication Instructions Recorded Confirmed Type cyanocobalamin (vitamin B-12) 1,000 mcg IM .Q4 WEEKS 07/10/18 07/10/18 History dexamethasone 4 mg PO UD 07/10/18 07/10/18 History enoxaparin [Lovenox] 70 mg SUBCUT Q12 07/10/18 07/10/18 History hydrochlorothiazide 25 mg PO DAILY PRN 07/10/18 07/10/18 History levothyroxine 100 mcg PO DAILY 07/10/18 07/10/18 History morphine [MS Contin] 15 mg PO Q12 07/10/18 07/10/18 History ondansetron HCl [Zofran] 4 mg PO Q8 PRN 07/10/18 07/10/18 History oxycodone-acetaminophen [Percocet] 1 tab PO Q6 PRN 07/10/18 07/10/18 History prochlorperazine maleate 10 mg PO Q6 PRN 07/10/18 07/10/18 History ranitidine HCl [Zantac] 150 mg PO BID 07/10/18 07/10/18 History aspirin [Enteric Coated Aspirin] 81 mg PO DAILY #30 tab 07/13/18 Rx doxycycline hyclate 100 mg PO BID 7 Days #14 cap 07/13/18 Rx ipratropium-albuterol [Combivent 1 puffs INH Q6H PRN #4 gm 07/13/18 Rx Respimat] metoprolol tartrate 12.5 mg PO BID 30 Days #30 tab 07/13/18 Rx prednisone 10 mg PO UD #26 tab 07/13/18 Rx Patient History Medical History 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) "Dysphagia beginning in [place] Status post upper GI endoscopy and biopsies 12/06/2016 Adenocarcinoma moderately differentiated Status post staging studies including CTs and head CT Clinical stage T3/4 N1 M0 Plan for combined radiation and chemotherapy followed by 3 cycles of chemotherapy Plan for esophage[facility] at [facility] following preoperative chemoradiation" On 12/26/16 17:07 Benito Aguilar wrote "Dysphagia beginning in [place] Status post upper GI endoscopy and biopsies 12/06/2016 Adenocarcinoma moderately differentiated Status post staging studies including CTs and head CT Clinical stage T4b N1 M0 Plan for combined radiation and chemotherapy followed by 3 cycles of chemotherapy" On 12/26/16 11:45 Mary Rodriguez wrote "Dysphagia beginning in [place] Status post upper GI endoscopy and biopsies 12/06/2016 Adenocarcinoma moderately differentiated Status post staging studies including CTs and head CT Clinical stage T4b N2 M0 Plan for combined radiation and chemotherapy followed by 3 cycles of chemotherapy" Radiation thyroiditis (Chronic) Surgical History H/O esophagectomy Family History Other Family history non-contributory Social History Preferred Language: Macedonian Communication Ability: Effective Final Inspector Balance Wheel Required: No Beliefs That Will Affect Care: None marital status: Current Living Situation: Spouse current occupational status: retired Other Information That Helps Us Care for You: No Feels Safe at Home: Yes Safety Concerns: Feels Safe At This Time Smoking Status: Never smoker Tobacco Type: cigarettes Do You Dip or Chew Tob acco: No Second Hand Exposure: No Hx Alcohol Use: No Hx Substance Use: No Review of Systems Review of Systems: REVIEW OF SYSTEMS: GENERAL: some weight loss noted, low-grade fever few days back but now no fever, no chills. SKIN: No skin rash, no bruising. HEAD: No new/increasing headache, no dizziness. EYES: No recent change in the vision, no diplopia, EARS: No earache ,no tinnitus, NOSE: No epistaxis, No nasal discharge or stuffiness, MOUTH: No sores, no dysphagia, no hoarseness of voice, NECK: No lumps, No swelling in thyroid area. No stiffness. PULMONARY: No cough, here is shortness of breath which has improved, now he is on oxygen treatment, no hemoptysis, no chest pain, No wheezing. CARDIOVASCULAR: No anginal chest pain, no PND, no orthopnea. No palpitation, no leg edema. No syncope. GASTRIINTESTINAL: intermittent abdominal discomfort retroperitoneal implants noted, no nausea or vomiting. No diarrhea, No constipation. No blood in stool or black tarry stools. No abdominal distention. UROLOGIC: No burning urination. No hematuria. MUSCULOSKELETAL: No joint pain, No joint swelling, no muscle weakness. HEMATOLOGIC: mild anemia noted, no bleeding disorder, No bruising. NEUROLOGIC: No seizures, no focal weakness at this time, no speech difficulty, some memory disturbances. Has some mild tingling and numbness of extremities but it is not further progressed.. PSYCHRIATRIC: No depression. Anxiety present.. No psychosis. Physical Exam Physical Exam: On exam: exam done in the sitting position. - Alert and oriented x 3, thin built man, not in any distress. - HEENT: no icterus, no pallor, Throat: Normal. - Neck: No palpable cervical lymphadenopathy. - Abdomen: soft, nontender, no hepatomegaly, no splenomegaly. - No focal neuro deficit. - Extremities: no finger clubbing, no leg edema. Results & Data Vital Signs (Past 12 Hours) Vital Signs Temp Pulse Resp BP BP Pulse Ox 07/13/18 15:51 36.5 C 98 H 19 105/64 100 07/13/18 15:32 100 07/13/18 13:44 76 16 99 07/13/18 11:34 36.4 C L 85 17 93/65 L 98 07/13/18 07:30 36.4 C L 100 H 20 97/66 L 98 07/13/18 07:06 96 H 16 99 I reviewed his blood workup done during this hospitalization, WBC count dropped down from 1.2 > 0.9, platelet count around 75,000, now improved to around 105,000. Hemoglobin level is around 10-10.5 g/dL. - ANC is 0.67. - BUN/creatinine: 7/1.1 - Magnesium 1.6 - Normal liver function test. - Blood and urine culture > Negative so far. IMAGING: PET/CT scan (06/10/2018, after 2 cycles of cisplatin and docetaxel: - Post surgical changes of previous esophagectomy and gastric polyps noted - Marked decrease activity of the previously noted right subscapularis muscle now SUV is around 2.0. - Resolution the previously noted pathology activity within the mid thoracicright paraspinal muscle. - Interval decrease in the activity with non-enlarged paratracheal lymph node with SUV of 2.0. - Small bilateral pleural effusion noted. --------- Carotid doppler: - Approximately 15 to 69% stenosis involving the right proximal internal caroti d artery. - No significant stenosis noted in the left carotid arteries. - Reversal of the blood flow within the left internal jugular vein with the colaterals demonstrating normal direction of the venous flow noted Brain MRI (07/11/2018) - No acute infarct, old small right sided infarct - Possible 3 minute focus of enhancement within the right cerebellar hemisphere. Recommended to follow-up brain MRI in about 1 month. Chest x-ray: - Left lower hemithorax obesity which appears to be diaphragmatic hernia so in the previous exam. - Superimposed left pleural effusion with left basilar opacity noted. - No evidence of pulmonary edema noted.
--- NOTE | 2018-07-14 08:00 | Discharge Summary ---
Date of Service July 14, 2018 Admission HPI Per Admitting Provider DICTATED BY: Tez Mercado MD DATE OF ADMISSION: 07/10/2018 CHIEF COMPLAINT: Altered mental status, left-sided weakness. 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 The patient's last chemo was last . He has a history of stroke 7-8 years ago, was in [facility]. At that time he had the same left-sided weakness, but that there was noted residual weakness. He lives with his . He ambulates okay. Appetite is okay. The patient was diagnosed with esophageal cancer in 2016 when he had a dysphagia to solids and the biopsy showed moderate adenocarcinoma, status post chemo at that time and treated with FOLFOX, then had esophagectomy and lymph node dissection at [facility] in 01/2018. He also had a history of fall and head injury in May 2016 with some mild hemorrhagic changes, did not require any surgical intervention. 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 Again he is started on chemo as per Oncology.Today afternoon around 3:00 p.m patient was found to be confused at home and was falling on his left side, was not talking much and not making sense, so he was brought in here. Initially in the ER, stroke alert was called, and CAT scan showed 7 mm right thalamic hypodensity that represents an age indeterminate lacunar infarct likely subacute to chronic and since the exact timing of his symptoms is not known and atleast almost 6 hours and also patient is on Lovenox for his DVT TPA was not given. The patient was also spiking temperatures in the ER. He was having like neutropenia and he was given a liter of fluids and cefepime and then his mental status seemed to come back to his baseline. He is answering appropriately but he takes time to answer and as per the family that is his usual since he is on chemo. He is confused of dates but he knows that he is in the hospital, knows his name, knows that his family is in the room and answers other questions appropriately. Denies any headache, denies any blurred visions. Has a chronic cough. Denies chest pain. No shortness of breath, no nausea. Some abdominal discomfort. He has some diarrhea since on chemo. Currently, blood pressure on the lower side. Otherwise, he ambulates okay. Admission Exam Per Admitting Provider GENERAL: The patient is alert and awake and oriented x2, not in acute distress. VITAL SIGNS: Temperature 37, T-max 38, pulse 97, respiratory rate 17, blood pressure 95/61, oxygen 93-94% room air. HEENT: No pallor, no icterus. Extraocular muscles intact. NECK: No JVD, no neck masses, no carotid bruits. CARDIOVASCULAR: S1, S2 heard, regular rate and rhythm, no murmur, no gallop. RESPIRATORY SYSTEM: Normal AP diameter normal. No accessory muscle use. No wheezing, no crackles. ABDOMEN: Soft, bowel sounds present. Nontender. No distention. CENTRAL NERVOUS SYSTEM: Alert and oriented x2. Speech is clear. Power 5/5 in right upper extremity and 4/5 in left upper extremity. Mild pronator drift on the left upper extremity. Sensations intact, position sense intact. Coordination of movements normal. EXTREMITIES: No edema, no erythema. Principal Diagnosis Change in mental status/metabolic encephalopathy-improved, adenocarcinoma of the lower esophagus with ongoing chemo, pancytopenia due to chemotherapy, DVT of the left upper extremity, stroke without any sequelae, emphysema, Discharge Exam Constitutional + ill appearing Eyes PERRL, conjunctivae normal, anicteric sclerae ENMT external ear and nose normal, oropharynx normal Neck trachea midline, no thyromegaly Respiratory + respiratory distress Auscultation: + diminished lung sounds (Mostly left base) and + wheezes (Bilaterally seems to be improved compared with yesterday's) Cardiovascular Rate/Rhythm: regular rate and regular rhythm Gastrointestinal (Abdomen) Inspection/Auscultation: abdomen normal to inspection and normal bowel sounds Musculoskeletal Extremities: strength 5/5 throughout Neurologic PERRL, EOMI, accommodation nl, no face palsy, no dysarthria Lymphatic no cervical or axillary lymphadenopathy Discharge Data Allergies Allergy/AdvReac Type Severity Reaction Status Date / Time No Known Allergies Allergy Verified 07/10/18 19:09 Consultations 07/10/18 20:21 ED Decision to Admit Stat 07/10/18 23:14 Consult Case Management - Discharge Planning Routine Consult Case Management - Discharge Planning Routine 07/11/18 08:00 Consult Hematology Routine Consult Neurology Routine 07/13/18 09:05 Consult Palliative Care Routine Ordered Studies 07/10/18 18:34 CT head/brain wo con Stat 07/10/18 23:14 US carotid doppler BI Routine 07/11/18 23:14 MR brain wo/w con Routine Hospital Course (1) Altered mental status: Multifactorial-metastatic adenocarcinoma of lower esophagus, possible infection with neutropenia, chemotherapy-induced Possibility of brain metastasis as per MRI report of 3 mm focus of enhancement within the right cerebellar hemisphere Mentation is at his baseline this morning Denies any acute confusion Blood and urine cultures are negative so far Will discontinue Zosyn and vancomycin (2) Stroke: Presented with strokelike symptoms especially left-sided weakness with a history of stroke in past Old small right-sided infarct identified in CT and MRI of the head Symptoms resolved Await neurology evaluation and recommendation-appreciate input and recommendation Clinically no residual effect of stroke Continue physical therapy as recommended PT and OT evaluation before discharge (3) Hx of thyroid disease: No acute thyroid problem (4) Deep vein thrombosis (DVT) of left upper extremity: Has been on Lovenox Denies any symptoms (5) Adenocarcinoma of lower esophagus: Has been getting chemotherapy Remains generally weak and lethargy We will discuss about palliative care and possible hospice home Discussed with the and the patient this morning We will get a palliative care consult (6) Hyperlipidemia: Continue current medication (7) Pancytopenia due to chemotherapy: Pancytopenia secondary to chemo Neutropenia with possible fever Urine and blood have been sent for culture and sensitivity Started on vancomycin and Zosyn intravenously No infective source identified, will stop antibiotics after 48 hours of initiation (8) Emphysema of lung: History of smoking in the past CT evidence of emphysema Has been complaining of shortness of breath with wheezing Likely has COPD exacerbation Has been getting intravenous Solu-Medrol and nebulized bronchodilators Doxycycline for possible bronchitis (9) Elevated troponin: Noted to have significantly elevated troponin May have non-ST elevation OR Cardiology consulted Has been on Lovenox therapeutic dose Denies any chest pain ECHO; this study was technically difficult, LV size is normal, mild concentric LV hypertrophy, no wall motion abnormalities, EF 60 to 65%, aortic valve sclerosis without significant stenosis no evidence of atrial septal defect. Likely discharge today or tomorrow after palliative care consult Total Time Total Time Spent Total Time Spent (In Minutes): 35 minutes Total Time Includes: Examination of the Patient, Discharge Planning, Medication Reconciliation and Communication With Other Providers Discharge Plan Discharge Items Patient Disposition: Home - Home Health Services Reason For Visit: ALTERED MENTAL STATUS Discharge Diagnosis: Change in mental status/metabolic encephalopathy-improved, adenocarcinoma of the lower esophagus with ongoing chemo, pancytopenia due to chemotherapy, DVT of the left upper extremity, stroke without any sequelae, emphysema, Condition: Fair Discharge Goals: Decrease discomfort, Improve function and Increase independence Activity: Resume your previous activity Non-emergency contact: Primary Care Provider Call non-emergency contact if: you have any medication questions and your symptoms worsen Follow-up/Referrals: Marco Antonio Brantley MD [Primary Care Provider] - 07/23/18 1:20 pm (Keep appointment with Dr. Aguilar, ) Diet: Heart Healthy Addtl Provider Instructions: Please take precaution to avoid falls. Will need repeat MRI with and without contrast in 4 weeks to evaluate right cerebellar ablation. Will need referral to a vascular surgeon for right ICA stenosis. Prescriptions: New doxycycline hyclate 100 mg Capsule 100 mg PO BID 7 Days Qty: 14 RF: 0 metoprolol tartrate 25 mg Tablet 12.5 mg PO BID 30 Days Qty: 30 RF: 0 aspirin [Enteric Coated Aspirin] 81 mg tablet,delayed release (DR/EC) 81 mg PO DAILY Qty: 30 RF: 0 Combivent Respimat 20-100 mcg/actuation mist 1 puffs INH Q6H PRN (Reason: wheezing) Qty: 4 RF: 0 prednisone 10 mg tablet 10 mg PO UD Qty: 26 RF: 0 Continued ondansetron HCl [Zofran] 8 mg tablet 4 mg PO Q8 PRN (Reason: Nausea) RF: 0 prochlorperazine maleate 10 mg tablet 10 mg PO Q6 PRN (Reason: Nausea) RF: 0 oxycodone-acetaminophen [Percocet] 5-325 mg tablet 1 tab PO Q6 PRN (Reason: MODERATE PAIN) RF: 0 levothyroxine 50 mcg Tablet 100 mcg PO DAILY RF: 0 cyanocobalamin (vitamin B-12) 1,000 mcg/mL Solution 1,000 mcg IM .Q4 WEEKS RF: 0 ranitidine HCl [Zantac] 150 mg tablet 150 mg PO BID RF: 0 dexamethasone 4 mg tablet 4 mg PO UD RF: 0 morphine [MS Contin] 15 mg tablet extended release 15 mg PO Q12 RF: 0 hydrochlorothiazide 25 mg tablet 25 mg PO DAILY PRN (Reason: FLUID BUILD UP) RF: 0 enoxaparin [Lovenox] 80 mg/0.8 mL syringe 70 mg subcut Q12 RF: 0 Stand-Alone Forms: [facility] Discharge Orders: Discharge Order (Routine); Ordered 07/13/18 Ordered By: Brendan Duran Admission Data Admit Date/Time: 07/10/18 22:07 Attending Provider: Brendan Duran Admit Provider: Tez Mercado Primary Care Provider: Marco Antonio Brantley Other Providers: Tez Mercado ; Bebeto Aguilar ; Ana Tracy ; Logan Ovalles ; Ana Whitehead ; Mame Albert ; Dave Mejía ; Luzmaria Lowery Service: Telemetry Other Interventions: Discharge Summary Assessment (RN) Last Done: 07/13/18 16:13 DC Date/Time DO NOT enter until pt leaves facility: 07/13/18 17:21
[2018-07-14] MEDS ORDERED: CYANOCOBALAMIN 1000 MCG/ML VIAL IM SCH (09:00)
== END 2018-07-13 17:21 | disposition hospice, home (50) | DRG 70 ==
LOC: ED 18:29 → 2E 22:07